=== PATIENT | male | born 1935 | race Caucasian/White ===

== ENCOUNTER → 2018-04-08 | Outpatient (CLI) | payer MEDICARE, OTHER ==
--- NOTE | 2018-04-08 13:55 | US ---
EXAMINATION TYPE: US prostate transrectal DATE OF EXAM: 04/08/2018 COMPARISON: NONE CLINICAL HISTORY: R97.20 elevated PSA. no urinary symptoms, PSA was 14 10 yrs ago and patient had bio psy at that time, PSA was staying steady at 2 and now is 5.4 This examination was performed using the transrectal probe. EXAM MEASUREMENTS: Gland Size: 5.5 x 5.5 x 4.1cm Volume: 65.9ml Predicted PSA: 7.9 Actual PSA (if available):5.2 Enlarged gland. Thin, heterogeneous appearance of PZ tissue versus large calcified CZ, no focal anoma ly seen on today exam. Difficult to image the seminal vesicles. IMPRESSION: Somewhat suboptimal exam due to shadowing by multiple central zone calcifications. Findi ngs are compatible with moderate benign prostatic hyperplasia. No focal suspicious abnormality is see n.
== END | disposition home or self-care (01) ==
LOC: RADUSMAIN 08:14
PROVIDERS: ATTEND Internal Medicine
DX: R97.20 Elevated prostate specific antigen [PSA] (principal); N40.0 Benign prostatic hyperplasia without lower urinary tract symptoms
CPT/HCPCS: 76872

== ENCOUNTER → 2018-07-08 | Outpatient (CLI) | payer MEDICARE, OTHER | END | disposition home or self-care (01) | LOC: LABWHC1 10:44 | PROVIDERS: ATTEND Internal Medicine | DX: E11.9 Type 2 diabetes mellitus without complications (principal) | CPT/HCPCS: 36415; 82043; 82570; 83036 ==

== ENCOUNTER → 2018-07-08 | Outpatient (CLI) | payer MEDICARE, OTHER ==
[2018-07-08 12:00] LABS: Hypochromasia Slight; MCH 29.2 pg (25.0-35.0); MCHC 31.3 g/dL (31.0-37.0); MCV 93.3 fL (80.0-100.0); Mean Platelet Volume 7.1; Platelet Count 175 k/uL (150-450); RBC 3.43 m/uL (4.30-5.90); WBC 7.3 k/uL (3.8-10.6)
[2018-07-08 12:04] LABS: INR 1.3 (<1.2); Partial Thromboplastin Time 28.9 sec (22.0-30.0)
[2018-07-08 12:05] LABS: Albumin 3.9 g/dL (3.5-5.0); Calcium 9.7 mg/dL (8.4-10.2); Potassium 4.4 mmol/L (3.5-5.1); Total Bilirubin 0.9 mg/dL (0.2-1.3); Total Protein 6.4 g/dL (6.3-8.2)
[2018-07-08 12:14] LABS: Appearance,Urine Clear (Clear); Bacteria,Urine Rare /hpf; Bilirubin,Urine Negative (Negative); Blood,Urine Negative (Negative); Color,Urine Yellow; Glucose,Urine (UA) Negative (Negative); Hyaline Casts,Urine 4 /lpf (0-2); Ketones,Urine Negative (Negative); Leukocyte Esterase,Urine Negative (Negative); Mucus,Urine Rare /hpf; Nitrite,Urine Negative (Negative); PH, Urine 5.5 (5.0-8.0); Protein,Urine 1+ (Negative); Specific Gravity,Urine 1.025 (1.001-1.035); Squamous Epithelial Cell,Urine <1 /hpf (0-4); Urobilinogen,Urine <2.0 mg/dL (<2.0); WBC,Urine 1 /hpf (0-5)
== END | disposition home or self-care (01) ==
LOC: LABPAT 10:40
PROVIDERS: ATTEND Orthopaedic Surgery
DX: Z01.812 Encounter for preprocedural laboratory examination (principal)
CPT/HCPCS: 36415; 80053; 81001; 85027; 85610; 85730; 87070

== ENCOUNTER 2018-07-10 11:18 | Observation (INO) | payer MEDICARE, OTHER ==
[2018-07-10] MEDS ORDERED: SODIUM CHLORIDE 0.9% 1,000 ML IV STA (11:41)
[2018-07-10] MEDS ORDERED: RX INFO: IV CONTRAST WAS GIVEN 1 EACH MISC MISCELLANE PRN (11:45)
--- NOTE | 2018-07-10 11:51 | ED ---
Syncope HPI <Skip Hudson - Last Filed: 07/10/18 15:35> - General Source: patient, family, RN notes reviewed, old records reviewed Mode of arrival: EMS Limitations: physical limitation <Ashleigh Alonzo - Last Filed: 07/10/18 15:50> - General Chief Complaint: Dizziness Stated Complaint: SYNCOPE Time Seen by Provider: 07/10/18 11:29 - History of Present Illness Initial Comments: Patient is an 82-year-old male presents today with chief complaint of syncopal episode. Patient reports that throughout the night he was somewhat dizzy. Patient states he would wake up feeling very dizzy and lightheaded but without effect bed. He states he woke up feeling well. He states that then he was eating his breakfast he started to feel unwell. He took his blood pressure was elevated at time. When standing after eating breakfast to go to his chair Patient had a syncopal episode. His on the ground. At this time he complains of "T1 pain. He is I'll request. History of coronary bypass surgery by Dr. Fatima. Patient states that he otherwise prior to today he has felt well. (Ashleigh Alonzo) - Related Data Home Medications Medication Instructions Recorded Confirmed Acetaminophen [Tylenol Arthritis] 650 mg PO DAILY PRN 07/10/18 07/10/18 Apixaban [Eliquis] 5 mg PO BID 07/10/18 07/10/18 Atorvastatin [Lipitor] 60 mg PO DAILY 07/10/18 07/10/18 Benzonatate [Tessalon Perles] 100 mg PO Q8H PRN 07/10/18 07/10/18 Cholecalciferol [Vitamin D3] 1,000 unit PO DAILY 07/10/18 07/10/18 Fenofibrate Nanocrystallized 145 mg PO DAILY 07/10/18 07/10/18 [Tricor] Ferrous Sulfate [Feosol] 325 mg PO DAILY 07/10/18 07/10/18 Loratadine [Claritin] 10 mg PO DAILY 07/10/18 07/10/18 Olmesartan [Benicar] 5 mg PO BID 07/10/18 07/10/18 Omeprazole 20 mg PO DAILY 07/10/18 07/10/18 Oxybutynin Xl [Ditropan Xl] 5 mg PO HS 07/10/18 07/10/18 Pioglitazone [Actos] 15 mg PO DAILY 07/10/18 07/10/18 Tamsulosin [Flomax] 0.4 mg PO HS 07/10/18 07/10/18 Torsemide [Demadex] 5 mg PO Q48H 07/10/18 07/10/18 glipiZIDE [Glucotrol] 10 mg PO AC-BRKFST 07/10/18 07/10/18 levETIRAcetam [Keppra] 1,000 mg PO Q12HR 07/10/18 07/10/18 sitaGLIPtin [Januvia] 100 mg PO DAILY 07/10/18 07/10/18 Allergies Allergy/AdvReac Type Severity Reaction Status Date / Time codeine AdvReac Unknown Verified 07/10/18 11:38 enalapril AdvReac Unknown Verified 07/10/18 11:38 enalaprilat [From Vasotec] AdvReac Unknown Verified 07/10/18 11:38 Sulfa (Sulfonamide AdvReac Unknown Verified 07/10/18 11:38 Antibiotics) sulfadiazine AdvReac Unknown Verified 07/10/18 11:38 sulfamethoxazole AdvReac Unknown Verified 07/10/18 11:38 [From Bactrim] trimethoprim [From Bactrim] AdvReac Unknown Verified 07/10/18 11:38 Review of Systems ROS Other: All systems not noted in ROS Statement are negative. <Skip Hudson - Last Filed: 07/10/18 15:35> ROS Other: All systems not noted in ROS Statement are negative. <Ashleigh Alonzo - Last Filed: 07/10/18 15:50> ROS Statement: Those systems with pertinent positive or pertinent negative responses have been documented in the HPI. Past Medical History Past Medical History: Atrial Fibrillation, Diabetes Mellitus, Hyperlipidemia, Hypertension Additional Past Medical History / Comment(s): T1 back injury History of Any Multi-Drug Resistant Organisms: None Reported Past Surgical History: Coronary Bypass/CABG, Heart Catheterization With Stent, Joint Replacement Additional Past Surgical History / Comment(s): lt knee Past Psychological History: No Psychological Hx Reported Smoking Status: Former smoker Past Alcohol Use History: None Reported Past Drug Use History: None Reported <Ashleigh Alonzo - Last Filed: 07/10/18 15:50> General Exam <Skip Hudson - Last Filed: 07/10/18 15:35> Limitations: physical limitation General appearance: alert Head exam: Present: atraumatic, normocephalic, normal inspection Eye exam: Present: normal appearance, PERRL, EOMI, nystagmus (Some lateral nystagmus on exam). Absent: scleral icterus, conjunctival injection, periorbital swelling ENT exam: Present: normal exam, mucous membranes moist Neck exam: Present: normal inspection. Absent: tenderness, meningismus, lymphadenopathy Respiratory exam: Present: normal lung sounds bilaterally. Absent: respiratory distress, wheezes, rales, rhonchi, stridor Cardiovascular Exam: Present: normal rhythm, normal heart sounds. Absent: regular rate, systolic murmur, diastolic murmur, rubs, gallop, clicks GI/Abdominal exam: Present: soft, normal bowel sounds. Absent: distended, tenderness, guarding, rebound, rigid Extremities exam: Present: normal inspection, full ROM, normal capillary refill , other (Bruising over the left arm.). Absent: tenderness, pedal edema, joint swelling, calf tenderness Back exam: Present: normal inspection Neurological exam: Present: alert, oriented X3, CN II-XII intact Expanded Patient oriented to: Present: person, place, time Speech: Present: fluid speech Cranial nerves: EOM's Intact: Normal Cerebellar function: Finger to Nose: Normal Upper motor neuron: Pronator Drift: Normal Sensory exam: Upper Extremity Light Touch: Normal, Lower Extremity Light Touch: Normal Motor strength exam: RUE: 5, LUE: 5, RLE: 5, LLE: 5 Psychiatric exam: Present: normal affect, normal mood Skin exam: Present: warm, dry, intact, normal color. Absent: rash <Ashleigh Alonzo - Last Filed: 07/10/18 15:50> - General Exam Comments Initial Comments: 82-year-old male. Patient appears somewhat weak. (Ashleigh Alonzo) Course <TristanSkip - Last Filed: 07/10/18 15:35> <Ashleigh Alonzo - Last Filed: 07/10/18 15:50> Vital Signs 07/10/18 07/10/18 07/10/18 11:22 11:45 12:11 Temperature 97.5 F L Pulse Rate 91 65 65 Respiratory 18 20 20 Rate Blood Pressure 186/87 199/102 176/91 O2 Sat by Pulse 97 94 L Oximetry 07/10/18 07/10/18 07/10/18 13:00 14:00 14:57 Temperature Pulse Rate 66 84 66 Respiratory 20 18 20 Rate Blood Pressure 184/92 180/87 178/93 O2 Sat by Pulse 97 98 98 Oximetry - Reevaluation(s) Reevaluation #1: 07/10/18 15:35 PA supervision: I proceeded [id number] evaluation patient did discuss the findings with him and his . Patient did have the onset of severe dizziness today. He states is worse in his usual vertigo. There is conflicting reports on whether she passed out or not. He does feel somewhat better but is still profoundly dizzy after Antivert. Examination revealed no focal deficits CT angios showed no evidence of any acute obstruction. I did discuss case with Dr. Kim the patient will be admitted with ENT evaluation. I do agree with the assessment and plan (Skip Hudson) Medical Decision Making - Lab Data Result diagrams: 07/10/18 11:40 07/10/18 11:40 <Skip Hudson - Last Filed: 07/10/18 15:35> - Lab Data Result diagrams: 07/10/18 11:40 07/10/18 11:40 - Radiology Data Radiology results: report reviewed <Ashleigh Alonzo - Last Filed: 07/10/18 15:50> - Medical Decision Making Patient is an 82-year-old male presents today with complaints of dizziness. He reports he had some dizziness with sweating. He needs breakfast and then continued some dizziness. He also states he had very lightheaded and near syncopal episode. Patient started on IV fluids labwork obtained. EKG was reviewed and negative for any significant changes from his old when compared to the office. Patient Patient was given Antivert for his dizziness with mild improvement. On reevaluation he states he continues to persist. The CT of his brain was negative for any acute changes. We did do a retinal the chest to dishes and cardiomegaly. But no acute changes. Patient will be admitted at this time under Dr. Velásquez prescription with consult ENT for vertigo. (Ashleigh Alonzo) - Lab Data Lab Results 07/10/18 07/10/18 07/10/18 Range/Units 11:40 11:40 11:40 WBC 6.8 (3.8-10.6) k/uL RBC 3.53 L (4.30-5.90) m/uL Hgb 10.3 L (13.0-17.5) gm/dL Hct 32.0 L (39.0-53.0) % MCV 90.6 (80.0-100.0) fL MCH 29.2 (25.0-35.0) pg MCHC 32.3 (31.0-37.0) g/dL RDW 14.9 (11.5-15.5) % Plt Count 190 (150-450) k/uL Neutrophils % 83 % Lymphocytes % 9 % Monocytes % 6 % Eosinophils % 1 % Basophils % 0 % Neutrophils # 5.6 (1.3-7.7) k/uL Lymphocytes # 0.6 L (1.0-4.8) k/uL Monocytes # 0.4 (0-1.0) k/uL Eosinophils # 0.1 (0-0.7) k/uL Basophils # 0.0 (0-0.2) k/uL PT (9.0-12.0) sec INR (<1.2) APTT (22.0-30.0) sec D-Dimer (<0.60) mg/L FEU Sodium 140 (137-145) mmol/L Potassium 3.7 (3.5-5.1) mmol/L Chloride 110 H (98-107) mmol/L Carbon Dioxide 22 (22-30) mmol/L Anion Gap 8 mmol/L BUN 16 (9-20) mg/dL Creatinine 1.15 (0.66-1.25) mg/dL Est GFR (CKD-EPI)AfAm 70 (>60 ml/min/1.73 sqM) Est GFR (CKD-EPI)NonAf 60 (>60 ml/min/1.73 sqM) Glucose 143 H (74-99) mg/dL POC Glucose (mg/dL) (75-99) mg/dL POC Glu Executive Admin ID Calcium 9.8 (8.4-10.2) mg/dL Magnesium 1.6 (1.6-2.3) mg/dL Total Bilirubin 1.3 (0.2-1.3) mg/dL AST 25 (17-59) U/L ALT 32 (21-72) U/L Alkaline Phosphatase 42 (38-126) U/L Total Creatine Kinase 108 (55-170) U/L CK-MB (CK-2) 0.8 (0.0-2.4) ng/mL CK-MB (CK-2) Rel Index 0.7 Troponin I 0.015 (0.000-0.034) ng/mL Total Protein 6.3 (6.3-8.2) g/dL Albumin 3.8 (3.5-5.0) g/dL 07/10/18 07/10/18 Range/Units 11:40 12:16 WBC (3.8-10.6) k/uL RBC (4.30-5.90) m/uL Hgb (13.0-17.5) gm/dL Hct (39.0-53.0) % MCV (80.0-100.0) fL MCH (25.0-35.0) pg MCHC (31.0-37.0) g/dL RDW (11.5-15.5) % Plt Count (150-450) k/uL Neutrophils % % Lymphocytes % % Monocytes % % Eosinophils % % Basophils % % Neutrophils # (1.3-7.7) k/uL Lymphocytes # (1.0-4.8) k/uL Monocytes # (0-1.0) k/uL Eosinophils # (0-0.7) k/uL Basophils # (0-0.2) k/uL PT 12.8 H (9.0-12.0) sec INR 1.2 H (<1.2) APTT 27.1 (22.0-30.0) sec D-Dimer 0.86 H (<0.60) mg/L FEU Sodium (137-145) mmol/L Potassium (3.5-5.1) mmol/L Chloride (98-107) mmol/L Carbon Dioxide (22-30) mmol/L Anion Gap mmol/L BUN (9-20) mg/dL Creatinine (0.66-1.25) mg/dL Est GFR (CKD-EPI)AfAm (>60 ml/min/1.73 sqM) Est GFR (CKD-EPI)NonAf (>60 ml/min/1.73 sqM) Glucose (74-99) mg/dL POC Glucose (mg/dL) 131 H (75-99) mg/dL POC Glu Executive Admin ID Calcium (8.4-10.2) mg/dL Magnesium (1.6-2.3) mg/dL Total Bilirubin (0.2-1.3) mg/dL AST (17-59) U/L ALT (21-72) U/L Alkaline Phosphatase (38-126) U/L Total Creatine Kinase (55-170) U/L CK-MB (CK-2) (0.0-2.4) ng/mL CK-MB (CK-2) Rel Index Troponin I (0.000-0.034) ng/mL Total Protein (6.3-8.2) g/dL Albumin (3.5-5.0) g/dL 07/10/18 11:54 EKG shows wide QRS. Left axis deviation. 5. Minimal voltage criteria for LVH. Abnormal EKG. Ventricular rate 67 bpm. Those were undetected. QRS duration 140 ms. QT QTc is 456/481 ms. (Ashleigh Alonzo) - Radiology Data The CT shows no evidence of this [place] occlusion or cranial aneurysm or cranial dissection. Moderate to severe atherosclerotic changes in the cavernous and supraclavicular portions of the internal carotid arteries. CT chest shows ground glass changes posteriorly likely related to motion artifact. Global cardiomegaly. Coronary artery calcification. Atherosclerotic change the aorta. Artifact reduced enhancement secondary to the phase imaging assess that of axillary. Multilevel degenerative disc disease and hypertrophic changes noted. (Ashleigh Alonzo) Disposition <Skip Hudson - Last Filed: 07/10/18 15:35> Is patient prescribed a controlled substance at d/c from ED?: No Time of Disposition: 15:50 <Ashleigh Alonzo - Last Filed: 07/10/18 15:50> Clinical Impression: Dizziness, Syncope Disposition: HOME SELF-CARE Condition: Good Instructions (If sedation given, give patient instructions): Dizziness (ED) Referrals: Marce Reilly MD [Primary Care Provider] - 1-2 days
[2018-07-10 12:16] LABS: Basophils % (A) 0 %; Eosinophils # (A) 0.1 k/uL (0-0.7); Eosinophils % (A) 1 %; HGB 10.3 gm/dL (13.0-17.5); Lymphocytes # (A) 0.6 k/uL (1.0-4.8); Lymphocytes % (A) 9 %; MCH 29.2 pg (25.0-35.0); MCHC 32.3 g/dL (31.0-37.0); MCV 90.6 fL (80.0-100.0); Monocytes # (A) 0.4 k/uL (0-1.0); Monocytes % (A) 6 %; Neutrophils # (A) 5.6 k/uL (1.3-7.7); Neutrophils % (A) 83 %; Platelet Count 190 k/uL (150-450); RBC 3.53 m/uL (4.30-5.90); RDW 14.9 % (11.5-15.5); WBC 6.8 k/uL (3.8-10.6)
[2018-07-10] MEDS ORDERED: MECLIZINE 12.5 MG TAB PO STA (12:16)
[2018-07-10 12:22] LABS: Glucose,Whole Blood 131 mg/dL (75-99)
[2018-07-10 12:24] LABS: Albumin 3.8 g/dL (3.5-5.0); Calcium 9.8 mg/dL (8.4-10.2); Magnesium 1.6 mg/dL (1.6-2.3); Potassium 3.7 mmol/L (3.5-5.1); Total Bilirubin 1.3 mg/dL (0.2-1.3); Total Protein 6.3 g/dL (6.3-8.2)
[2018-07-10 12:29] LABS: INR 1.2 (<1.2); Partial Thromboplastin Time 27.1 sec (22.0-30.0); Prothrombin Time 12.8 sec (9.0-12.0)
[2018-07-10 12:53] LABS: Creatine Kinase MB 0.8 ng/mL (0.0-2.4); Troponin I 0.015 ng/mL (0.000-0.034)
[2018-07-10 12:59] LABS: D-Dimer 0.86 mg/L FEU (<0.60)
--- NOTE | 2018-07-10 14:33 | CT ---
EXAMINATION TYPE: CT angio head DATE OF EXAM: 07/10/2018 HISTORY: syncope COMPARISON: NONE CT DLP: 2689 mGycm. Automated Exposure Control for Dose Reduction was Utilized. TECHNIQUE: CTA scan of the neck is performed with IV Contrast, patient injected with 100 mL of Isovu e 370, axial images are obtained, coronal and sagittal reformatted images are reviewed. Three-D recon structed images are created on an independent workstation and reviewed. FINDINGS: Carotid/Vascular Structures: Moderate to severe atherosclerosis is seen of the cavernous and supracli noid portions of the internal carotid arteries. Degree of stenosis is difficult to accurately assess at least locations given the tortuosity, however there is no vascular occlusion. No intracranial aneu rysm is seen. No intracranial dissection. Mild atherosclerosis of the right vertebral artery is noted . The vertebral arteries demonstrate right-sided dominance. Posterior circulation is unremarkable. Po sterior communicating arteries appear diminutive. IMPRESSION: No evidence of vascular occlusion, intracranial aneurysm or intracranial dissection. Mode rate to severe calcific atheromatous changes seen of the cavernous and supraclinoid portions of the i nternal carotid arteries.
--- NOTE | 2018-07-10 14:35 | CT ---
EXAMINATION TYPE: CT chest w con DATE OF EXAM: 07/10/2018 COMPARISON: Chest x-ray 07/10/2018 HISTORY: syncope CT DLP: 672.6 mGycm Automated exposure control for dose reduction was used. CONTRAST: CT scan of the chest is performed with IV Contrast, patient injected with 100 mL of Isovue 370. FINDINGS: LUNGS: Subsegmental changes involving the right lung base. No pleural effusion or pneumothorax. MEDIASTINUM: There are no greater than 1 cm hilar or mediastinal lymph nodes. No pericardial effusi on is seen. The heart is markedly enlarged. 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 Three-vessel coronary calcifications noted. Assessment for pulmonary embolism nondiagnostic due to suboptimal opacification . Aorta grossly of normal caliber. A limited enhancement limits assessment for aortic injury secondar y to phase of imaging post CTA of the head. Exam limited by artifact. OTHER: Hypertrophic and degenerative change of the spine. Poststernotomy changes noted. Bilateral si mple appearing renal cyst. IMPRESSION: 1. Groundglass changes posteriorly likely related to motion artifact and respiratory dependent atelec tasis. 2. Global cardiomegaly. 3. Coronary artery calcification. Atherosclerotic change aorta. Artifact in reduced enhancement secon celso to phase of imaging limits assessment of the vascularity. 4. Multilevel degenerative disc disease and hypertrophic changes.
[2018-07-10] MEDS ORDERED: MORPHINE SULFATE 4 MG/ML SYRINGE IV PRN (15:50)
[2018-07-10] MEDS ORDERED: NALOXONE 0.4 MG/ML 1 ML VIAL IV PRN (15:50)
[2018-07-10] MEDS ORDERED: ONDANSETRON 4 MG/2 ML VIAL IVP PRN (15:50)
[2018-07-10] MEDS ORDERED: KETOROLAC 30 MG/ML 1 ML VIAL IVP PRN (15:50)
[2018-07-10] MEDS ORDERED: ACETAMINOPHEN TAB 325 MG TAB PO PRN ×2 (15:50→20:28)
[2018-07-10] MEDS ORDERED: IBUPROFEN 400 MG TAB PO PRN (15:50)
[2018-07-10] MEDS ORDERED: SODIUM CHLORIDE 0.9% 1,000 ML IV SCH (16:00)
--- NOTE | 2018-07-10 16:14 | ED ---
Medical Decision Making - Lab Data Result diagrams: 07/10/18 11:40 07/10/18 11:40 Lab Results 07/10/18 07/10/18 07/10/18 Range/Units 11:40 11:40 11:40 WBC 6.8 (3.8-10.6) k/uL RBC 3.53 L (4.30-5.90) m/uL Hgb 10.3 L (13.0-17.5) gm/dL Hct 32.0 L (39.0-53.0) % MCV 90.6 (80.0-100.0) fL MCH 29.2 (25.0-35.0) pg MCHC 32.3 (31.0-37.0) g/dL RDW 14.9 (11.5-15.5) % Plt Count 190 (150-450) k/uL Neutrophils % 83 % Lymphocytes % 9 % Monocytes % 6 % Eosinophils % 1 % Basophils % 0 % Neutrophils # 5.6 (1.3-7.7) k/uL Lymphocytes # 0.6 L (1.0-4.8) k/uL Monocytes # 0.4 (0-1.0) k/uL Eosinophils # 0.1 (0-0.7) k/uL Basophils # 0.0 (0-0.2) k/uL PT (9.0-12.0) sec INR (<1.2) APTT (22.0-30.0) sec D-Dimer (<0.60) mg/L FEU Sodium 140 (137-145) mmol/L Potassium 3.7 (3.5-5.1) mmol/L Chloride 110 H (98-107) mmol/L Carbon Dioxide 22 (22-30) mmol/L Anion Gap 8 mmol/L BUN 16 (9-20) mg/dL Creatinine 1.15 (0.66-1.25) mg/dL Est GFR (CKD-EPI)AfAm 70 (>60 ml/min/1.73 sqM) Est GFR (CKD-EPI)NonAf 60 (>60 ml/min/1.73 sqM) Glucose 143 H (74-99) mg/dL POC Glucose (mg/dL) (75-99) mg/dL POC Glu Apron Cleaner ID Calcium 9.8 (8.4-10.2) mg/dL Magnesium 1.6 (1.6-2.3) mg/dL Total Bilirubin 1.3 (0.2-1.3) mg/dL AST 25 (17-59) U/L ALT 32 (21-72) U/L Alkaline Phosphatase 42 (38-126) U/L Total Creatine Kinase 108 (55-170) U/L CK-MB (CK-2) 0.8 (0.0-2.4) ng/mL CK-MB (CK-2) Rel Index 0.7 Troponin I 0.015 (0.000-0.034) ng/mL Total Protein 6.3 (6.3-8.2) g/dL Albumin 3.8 (3.5-5.0) g/dL 07/10/18 07/10/18 Range/Units 11:40 12:16 WBC (3.8-10.6) k/uL RBC (4.30-5.90) m/uL Hgb (13.0-17.5) gm/dL Hct (39.0-53.0) % MCV (80.0-100.0) fL MCH (25.0-35.0) pg MCHC (31.0-37.0) g/dL RDW (11.5-15.5) % Plt Count (150-450) k/uL Neutrophils % % Lymphocytes % % Monocytes % % Eosinophils % % Basophils % % Neutrophils # (1.3-7.7) k/uL Lymphocytes # (1.0-4.8) k/uL Monocytes # (0-1.0) k/uL Eosinophils # (0-0.7) k/uL Basophils # (0-0.2) k/uL PT 12.8 H (9.0-12.0) sec INR 1.2 H (<1.2) APTT 27.1 (22.0-30.0) sec D-Dimer 0.86 H (<0.60) mg/L FEU Sodium (137-145) mmol/L Potassium (3.5-5.1) mmol/L Chloride (98-107) mmol/L Carbon Dioxide (22-30) mmol/L Anion Gap mmol/L BUN (9-20) mg/dL Creatinine (0.66-1.25) mg/dL Est GFR (CKD-EPI)AfAm (>60 ml/min/1.73 sqM) Est GFR (CKD-EPI)NonAf (>60 ml/min/1.73 sqM) Glucose (74-99) mg/dL POC Glucose (mg/dL) 131 H (75-99) mg/dL POC Glu Apron Cleaner ID Calcium (8.4-10.2) mg/dL Magnesium (1.6-2.3) mg/dL Total Bilirubin (0.2-1.3) mg/dL AST (17-59) U/L ALT (21-72) U/L Alkaline Phosphatase (38-126) U/L Total Creatine Kinase (55-170) U/L CK-MB (CK-2) (0.0-2.4) ng/mL CK-MB (CK-2) Rel Index Troponin I (0.000-0.034) ng/mL Total Protein (6.3-8.2) g/dL Albumin (3.5-5.0) g/dL Disposition Clinical Impression: Dizziness, Syncope Disposition: ADMITTED IP TO THIS HOSP Condition: Good Instructions (If sedation given, give patient instructions): Dizziness (ED) Referrals: Marce Reilly MD [Primary Care Provider] - 1-2 days
[2018-07-10] MEDS: LORazepam 2 MG/ML INJ IV PRN ×2 (16:56→22:03)
[2018-07-10 17:41] LABS: Appearance,Urine Clear (Clear); Bilirubin,Urine Negative (Negative); Blood,Urine Negative (Negative); Color,Urine Yellow; Glucose,Urine (UA) Trace (Negative); Ketones,Urine Negative (Negative); Leukocyte Esterase,Urine Negative (Negative); Nitrite,Urine Negative (Negative); Protein,Urine Trace (Negative); Specific Gravity,Urine 1.028 (1.001-1.035); Urobilinogen,Urine <2.0 mg/dL (<2.0)
[2018-07-10] MEDS ORDERED: NON-FORMULARY DRUG (Torsemide [Demadex] 5 MG) PO SCH (20:30)
[2018-07-10 20:46] LABS: Glucose,Whole Blood 203 mg/dL (75-99)
[2018-07-10] MEDS ORDERED: OXYBUTYNIN XL 5 MG TAB.ER.24 PO SCH (21:00)
[2018-07-10] MEDS ORDERED: TAMSULOSIN 0.4 MG CAP.ER.24H PO SCH (21:00)
[2018-07-10] MEDS: CHOLECALCIFEROL 1,000 UNIT TAB PO SCH (22:01)
[2018-07-10] MEDS: PANTOPRAZOLE 40 MG/10 ML VIAL IV SCH (22:01)
[2018-07-10] MEDS: APIXABAN 5 MG TAB PO SCH (22:02)
[2018-07-10] MEDS: PIOGLITAZONE 15 MG TAB PO SCH (22:02)
[2018-07-10] MEDS: levETIRAcetam 500 MG TAB PO SCH (22:02)
[2018-07-10] MEDS: LOSARTAN 25 MG TAB PO SCH (22:02)
[2018-07-10] MEDS: INSULIN ASPART 100 UNIT/ML 1 ML 10 ML VIAL SQ SCH (22:03)
[2018-07-10] MEDS: ATORVASTATIN 20 MG TAB PO SCH (22:03)
[2018-07-10] MEDS ORDERED: MECLIZINE 25 MG TAB PO PRN (23:10)
--- NOTE | 2018-07-10 23:24 | P.HPIM ---
History of Present Illness H&P Date: 07/10/18 Chief Complaint: Vertigo Patient is a 82-year-old male with a known history of paroxysmal atrial fibrillation on anticoagulation, coronary artery disease with history of CABG and stent placement, diabetes type 2, hypertension, hyperlipidemia, GERD, osteoarthritis and prostate disorder came to ER with complaints of near syncope and dizziness and vertigo. Patient says that his dizziness started last night when he moved his head to the left while he was on the bed. Patient woke up and felt like room spinning around for about 30 seconds and he went back to sleep. It happened again and he felt okay after 30 seconds and back to sleep. Today patient felt good and the brake fast and started having dizziness and lightheadedness again. Patient says that his blood pressure was high at the time 180/100 and heart rate around 100. Patient went to turn up the heat and suddenly collapsed on the floor. Denied any loss of consciousness. Patient has been having had spinning since then. Symptoms get worsen with head movement. Patient denied any weakness. No numbness or tingling. No chest pain or shortness of breath. No nausea vomiting or abdominal pain or diarrhea. Denied any recent illnesses. Patient was brought to the hospital for evaluation. Patient states that he otherwise prior to today he has felt well. EKG showed wide complex QRS, right bundle branch block. CT angiogram of the head showed no evidence of vascular occlusion. , Intracranial aneurysm, or intracranial dissection. moderate to severe calcific atheromatous changes seen in the cavernous and supraclinoid portions of the internal carotid arteries. CT angiogram of the chest showed groundglass changes posteriorly likely related to motion artifact and respiratory dependent atelectasis. Global cardiomegaly Coronary artery calcification. Atheromatous changes of aorta. Multilevel degenerative disc disease. D-dimer 0.86 Troponin 2 negative Review of Systems Constitutional: Patient denies any fever or chills . No generalized weakness or weight loss. Abdomen: Patient denied nausea vomiting and diarrhea and abdominal pain. Cardiovascular: Patient denies any chest pain or short of breath no palpitations. Respiratory: patient denied any cough is from production. No shortness of breath Neurologic: Patient denied any numbness or tingling headache. Dizziness and vertigo Musculoskeletal: Patient denies any complaints of joint swelling or deformity. Skin: Negative Psychiatric: Negative Endocrine: No heat or cold intolerance. No recent weight gain. Genitourinary: No dysuria or hematuria. 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- PLEASE F/U WITH DR OFFICE IN AM History of Any Multi-Drug Resistant Organisms: None Reported Past Surgical History: Coronary Bypass/CABG, Heart Catheterization With Stent, Joint Replacement Additional Past Surgical History / Comment(s): lt knee REPLACEMENT, FAVIOLA CATARACTS, EGD,COLONOSCOPY Past Anesthesia/Blood Transfusion Reactions: Previous Problems w/ Anesthesia, Motion Sickness Additional Past Anesthesia/Blood Transfusion Reaction / Comment(s): DIFFICULTY WAKING AND PT HAS SEVERE REACTIONS TO PROPOFOL AND DIPRIVAN Date of Last Stent Placement:: UNK Smoking Status: Former smoker - Past Family History Mother Family Medical History: Cancer Additional Family Medical History / Comment(s): AGE 77 FROM COLON CANCER Father Family Medical History: Myocardial Infarction ([place]) Additional Family Medical History / Comment(s): AGE 64 FROM [place] Medications and Allergies Home Medications Medication Instructions Recorded Confirmed Type Acetaminophen [Tylenol Arthritis] 650 mg PO DAILY PRN 07/10/18 07/10/18 History Apixaban [Eliquis] 5 mg PO BID 07/10/18 07/10/18 History Atorvastatin [Lipitor] 60 mg PO DAILY 07/10/18 07/10/18 History Cholecalciferol [Vitamin D3] 1,000 unit PO DAILY 07/10/18 07/10/18 History Fenofibrate Nanocrystallized 145 mg PO DAILY 07/10/18 07/10/18 History [Tricor] Ferrous Sulfate [Feosol] 325 mg PO DAILY 07/10/18 07/10/18 History Loratadine [Claritin] 10 mg PO DAILY 07/10/18 07/10/18 History Olmesartan [Benicar] 5 mg PO BID 07/10/18 07/10/18 History Omeprazole 20 mg PO DAILY 07/10/18 07/10/18 History Oxybutynin Xl [Ditropan Xl] 5 mg PO HS 07/10/18 07/10/18 History Pioglitazone [Actos] 15 mg PO DAILY 07/10/18 07/10/18 History Tamsulosin [Flomax] 0.4 mg PO HS 07/10/18 07/10/18 History Torsemide [Demadex] 5 mg PO Q48H 07/10/18 07/10/18 History glipiZIDE [Glucotrol] 10 mg PO AC-BRKFST 07/10/18 07/10/18 History levETIRAcetam [Keppra] 1,000 mg PO Q12HR 07/10/18 07/10/18 History sitaGLIPtin [Januvia] 100 mg PO DAILY 07/10/18 07/10/18 History Allergies Allergy/AdvReac Type Severity Reaction Status Date / Time propofol Allergy Severe Unknown Verified 07/10/18 19:50 codeine AdvReac Unknown Verified 07/10/18 19:50 enalapril AdvReac Unknown Verified 07/10/18 19:50 enalaprilat [From Vasotec] AdvReac Unknown Verified 07/10/18 19:50 Sulfa (Sulfonamide AdvReac Unknown Verified 07/10/18 19:50 Antibiotics) sulfadiazine AdvReac Unknown Verified 07/10/18 19:50 sulfamethoxazole AdvReac Unknown Verified 07/10/18 19:50 [From Bactrim] trimethoprim [From Bactrim] AdvReac Unknown Verified 07/10/18 19:50 Physical Exam Vitals: Vital Signs Temp Pulse Pulse Resp BP BP Pulse Ox 07/10/18 20:08 20 07/10/18 20:00 97.7 F 84 16 173/93 98 07/10/18 18:56 98.6 F 86 20 167/68 99 07/10/18 18:00 83 20 165/81 97 07/10/18 17:00 80 18 162/92 99 07/10/18 16:00 87 20 165/88 96 07/10/18 14:57 66 20 178/93 98 07/10/18 14:00 84 18 180/87 98 07/10/18 13:00 66 20 184/92 97 07/10/18 12:11 65 20 176/91 07/10/18 11:45 65 20 199/102 94 L 07/10/18 11:22 97.5 F L 91 18 186/87 97 Intake and Output 07/10/18 07/10/18 07/10/18 06:59 14:59 22:59 Other: Voiding Method Toilet Weight 104.326 kg PHYSICAL EXAMINATION: Patient is lying in the bed comfortably, no acute distress, awake alert and oriented.. HEENT: Normocephalic. Neck is supple. Pupils reactive. Nostrils clear. Oral cavity is moist. Ears reveal no drainage. Neck reveals no JVD, carotid bruits, or thyromegaly. CHEST EXAMINATION: Trachea is central. Symmetrical expansion. Lung celaya clear to auscultation and percussion. CARDIAC: Normal S1, S2 with no gallops. No murmurs ABDOMEN: Soft. Bowel sounds normal. No organomegaly. No abdominal bruits. Extremities: reveal no edema. No clubbing or cyanosis Neurologically awake, alert, oriented x3 with well-coordinated movements. No focal deficits noted Skin: No rash or skin lesions. Psychiatric: Coperative. Nonsuicidal Musculoskeletal: No joint swelling or deformity. Normal range of motion. Results CBC & Chem 7: 07/10/18 11:40 07/10/18 11:40 Labs: Abnormal Lab Results - Last 24 Hours (Table) 07/10/18 07/10/18 07/10/18 Range/Units 11:40 11:40 11:40 RBC 3.53 L (4.30-5.90) m/uL Hgb 10.3 L (13.0-17.5) gm/dL Hct 32.0 L (39.0-53.0) % Lymphocytes # 0.6 L (1.0-4.8) k/uL PT 12.8 H (9.0-12.0) sec INR 1.2 H (<1.2) D-Dimer 0.86 H (<0.60) mg/L FEU Chloride 110 H (98-107) mmol/L Glucose 143 H (74-99) mg/dL POC Glucose (mg/dL) (75-99) mg/dL Urine Protein (Negative) Urine Glucose (UA) (Negative) 07/10/18 07/10/18 07/10/18 Range/Units 12:16 17:15 20:44 RBC (4.30-5.90) m/uL Hgb (13.0-17.5) gm/dL Hct (39.0-53.0) % Lymphocytes # (1.0-4.8) k/uL PT (9.0-12.0) sec INR (<1.2) D-Dimer (<0.60) mg/L FEU Chloride (98-107) mmol/L Glucose (74-99) mg/dL POC Glucose (mg/dL) 131 H 203 H (75-99) mg/dL Urine Protein Trace H (Negative) Urine Glucose (UA) Trace H (Negative) Thrombosis Risk Factor Assmnt - DVT/VTE Prophylaxis DVT/VTE Prophylaxis: Pharmacologic Prophylaxis ordered - Choose All That Apply Any of the Below Risk Factors Present?: Yes Each Factor Represents 1 point: Abnormal pulmonary function (COPD), Hx of IBD, Obesity (BMI >25) Other Risk Factors: Yes Each Risk Factor Represents 3 Points: Age 75 years or older Thrombosis Risk Factor Assessment Total Risk Factor Score: 6 Thrombosis Risk Factor Assessment Level: High Risk Assessment and Plan Assessment: Dizziness likely due to benign positional vertigo. Paroxysmal atrial fibrillation on anticoagulation Coronary artery disease with history of CABG and also stent placement Elevated d-dimer. CT chest is negative for any pulmonary embolism Hypertension Hyperlipidemia Osteoarthritis Prostate disorder Degenerative joint disease and history of T1 back injury Previous history of smoking Hard of hearing DVT prophylaxis Plan: Patient will be continued on meclizine prays daily when necessary for vertigo. Continue with telemetry monitoring. Serial EKGs and troponins. Continue with home medications and cardiology and ENT was consulted. Further recommendations based on the clinical course. Discussed with his at outside in detail. Time with Patient: Greater than 30
[2018-07-11 06:49] LABS: Glucose,Whole Blood 118 mg/dL (75-99)
[2018-07-11] MEDS ORDERED: glipiZIDE 10 MG TAB PO SCH (07:30)
[2018-07-11] MEDS ORDERED: LORATADINE 10 MG TAB PO SCH (09:00)
[2018-07-11] MEDS ORDERED: ATORVASTATIN 20 MG TAB PO SCH (09:00)
[2018-07-11] MEDS ORDERED: PANTOPRAZOLE 40 MG/10 ML VIAL IV SCH (09:00)
[2018-07-11] MEDS ORDERED: NON-FORMULARY DRUG (Omeprazole [Omeprazole] 20 MG) PO SCH (09:00)
[2018-07-11] MEDS ORDERED: FERROUS SULFATE 325 MG TAB PO SCH (09:00)
[2018-07-11] MEDS ORDERED: PIOGLITAZONE 15 MG TAB PO SCH (09:00)
[2018-07-11] MEDS ORDERED: FENOFIBRATE 160 MG TAB PO SCH (09:00)
[2018-07-11] MEDS ORDERED: LINAGLIPTIN 5 MG TABLET PO SCH (09:00)
[2018-07-11] MEDS ORDERED: CHOLECALCIFEROL 1,000 UNIT TAB PO SCH (09:00)
[2018-07-11 09:08] VITALS: RESP 16
[2018-07-11] MEDS: INSULIN ASPART 100 UNIT/ML 1 ML 10 ML VIAL SQ SCH (10:13)
[2018-07-11] MEDS: APIXABAN 5 MG TAB PO SCH (10:14)
[2018-07-11] MEDS: CHOLECALCIFEROL 1,000 UNIT TAB PO SCH (10:14)
[2018-07-11] MEDS: LOSARTAN 25 MG TAB PO SCH (10:15)
[2018-07-11] MEDS: PIOGLITAZONE 15 MG TAB PO SCH (10:16)
[2018-07-11] MEDS: PANTOPRAZOLE 40 MG/10 ML VIAL IV SCH (10:17)
[2018-07-11] MEDS: levETIRAcetam 500 MG TAB PO SCH (10:26)
[2018-07-11] MEDS: ATORVASTATIN 20 MG TAB PO SCH (10:26)
[2018-07-11 11:41] LABS: Glucose,Whole Blood 160 mg/dL (75-99)
--- NOTE | 2018-07-11 11:45 | P.CRDCN ---
History of Present Illness History of present illness: This is a pleasant 82-year-old male past medical history of coronary artery disease s/p bypass grafting, paroxysmal atrial fibrillation on long-term anticoagulation, hypertension, dyslipidemia and vertigo. He follows with Dr. Fatima in the office. We have been asked to see him in consultation for syncope. He states Saturday night while he was laying down on the left side of his body. He rolled his head to the right and became acutely dizzy for a minutes or so then fell back asleep. He woke up again and moved his head again and again became acutely dizzy for a little over a minute or so. And again fell back asleep. He has a history of vertigo, so these symptoms were not abnormal for him and did not alarm him. When he woke up that next morning he felt generally unwell so he decided to check his blood pressure. It was high 180 systolic with heart rate 112. No chest pain, shortness of breath, palpitations or diaphoresis. Throughout the day he continued to feel symptoms of vertigo and did fall forward when he bent over to turn up his furnace. He denies loss of consciousness. Upon arrival to the hospital blood pressure was continuing to be elevated. EKG reveals atrial fibrillation with right bundle branch block. Controlled ventricular response with a heart rate of 67. Chest CT physical ground glass changes, global cardiomegaly and coronary artery calcification. CTA head no vascular occlusion, aneurysm or dissection. Moderate to severe calcific changes of the internal carotid arteriers. Recent stress test performed in the office December 2017 Lexiscan stress test negative for reversible cardiac ischemia. Recent echocardiogram obtained in the office November 2017 reveals preserved left ventricular systolic function with ejection fraction 55%. Mildly dilated left atrium and mild dilated right ventricle. Laboratory data reviewed, cardiac enzymes negative 3, hemoglobin 10.3, platelets 190, d-dimer 0.86, sodium 140, potassium 1.15. Current cardiac medications include almost certain 5 mg twice a day, atorvastatin 60 mg daily, Eliquis 5 mg twice a day and Demadex 5 mg every other day. At the time of my exam: CONSTITUTIONAL: Denies fever. Denies chills. EYES: Denies blurred vision. Denies vision changes. Denies eye pain. EARS, NOSE, MOUTH & THROAT: Denies headache. Denies sore throat. Denies ear pain. CARDIOVASCULAR: Denies chest pain. Denies shortness of breath. Denies orthopnea. Denies PND. Denies palpitations. RESPIRATORY: Denies cough. GASTROINTESTINAL: Denies abdominal pain. Denies diarrhea. Denies constipation. Denies nausea. Denies vomiting. MUSCULOSKELETAL: Denies myalgias. INTEGUMENTARY: Denies pruitis. Denies rash. NEUROLOGIC: Denies numbness. Denies tingling. Denies weakness. PSYCHIATRIC: Denies anxiety. Denies depression. ENDOCRINE: Denies fatigue. Denies weight change. Denies polydipsia. Denies polyurina. GENITOURINARY: Denies burning, hematuria or urgency with micturation. HEMATOLOGIC: Denies history of anemia. Denies bleeding. Blood pressure 151/73 heart rate 75 afebrile maintaining oxygen saturation on room air GENERAL: This is a 82-year-old male in no apparent distress at the time of my examination. HEENT: Head is atraumatic, normocephalic. Pupils are equal, round. Sclerae anicteric. Conjunctivae are clear. Mucous membranes of the mouth are moist. Neck is supple. There is no jugular venous distention. No carotid bruit is heard. LUNGS: Clear to auscultation no wheezes, rales or rhonchi. No chest wall tenderness is noted on palpation or with deep breathing. HEART: Regular rate and rhythm without murmurs, rubs or gallops. S1 and S2 heard. ABDOMEN: Soft, nontender. Bowel sounds are heard. No organomegaly noted. EXTREMITIES: No evidence of peripheral edema and no calf tenderness noted. VASCULAR: Radial and dorsalis pedis pulses palpated, no evidence of clubbing. NEUROLOGIC: Patient is awake, alert and oriented x3. ASSESSMENT Vertigo Hypertension Paroxysmal atrial fibrillation on retirement anticoagulation. History of coronary artery disease s/p bypass surgery 2006 Dyslipidemia PLAN Stable from a cardiac perspective. No evidence of syncope or loss of consciousness. Telemetry tracings unremarkable for acute arrhythmia outside of his baseline. Ongoing medical management. Nurse Practitioner note has been reviewed, I agree with a documented findings and plan of care. Patient was seen and examined. 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- PLEASE F/U WITH OFFICE IN AM History of Any Multi-Drug Resistant Organisms: None Reported Past Surgical History: Coronary Bypass/CABG, Heart Catheterization With Stent, Joint Replacement Additional Past Surgical History / Comment(s): lt knee REPLACEMENT, FAVIOLA CATARACTS, EGD,COLONOSCOPY Past Anesthesia/Blood Transfusion Reactions: Previous Problems w/ Anesthesia, Motion Sickness Additional Past Anesthesia/Blood Transfusion Reaction / Comment(s): DIFFICULTY WAKING AND PT HAS SEVERE REACTIONS TO PROPOFOL AND DIPRIVAN Date of Last Stent Placement:: UNK Smoking Status: Former smoker - Past Family History Mother Family Medical History: Cancer Additional Family Medical History / Comment(s): AGE 77 FROM COLON CANCER Father Family Medical History: Myocardial Infarction ([place]) Additional Family Medical History / Comment(s): AGE 64 FROM [place] Medications and Allergies Home Medications Medication Instructions Recorded Confirmed Type Acetaminophen [Tylenol Arthritis] 650 mg PO DAILY PRN 07/10/18 07/10/18 History Apixaban [Eliquis] 5 mg PO BID 07/10/18 07/10/18 History Atorvastatin [Lipitor] 60 mg PO DAILY 07/10/18 07/10/18 History Cholecalciferol [Vitamin D3] 1,000 unit PO DAILY 07/10/18 07/10/18 History Fenofibrate Nanocrystallized 145 mg PO DAILY 07/10/18 07/10/18 History [Tricor] Ferrous Sulfate [Feosol] 325 mg PO DAILY 07/10/18 07/10/18 History Loratadine [Claritin] 10 mg PO DAILY 07/10/18 07/10/18 History Olmesartan [Benicar] 5 mg PO BID 07/10/18 07/10/18 History Omeprazole 20 mg PO DAILY 07/10/18 07/10/18 History Oxybutynin Xl [Ditropan Xl] 5 mg PO HS 07/10/18 07/10/18 History Pioglitazone [Actos] 15 mg PO DAILY 07/10/18 07/10/18 History Tamsulosin [Flomax] 0.4 mg PO HS 07/10/18 07/10/18 History Torsemide [Demadex] 5 mg PO Q48H 07/10/18 07/10/18 History glipiZIDE [Glucotrol] 10 mg PO AC-BRKFST 07/10/18 07/10/18 History levETIRAcetam [Keppra] 1,000 mg PO Q12HR 07/10/18 07/10/18 History sitaGLIPtin [Januvia] 100 mg PO DAILY 07/10/18 07/10/18 History Allergies Allergy/AdvReac Type Severity Reaction Status Date / Time propofol Allergy Severe Unknown Verified 07/10/18 19:50 codeine AdvReac Unknown Verified 07/10/18 19:50 enalapril AdvReac Unknown Verified 07/10/18 19:50 enalaprilat [From Vasotec] AdvReac Unknown Verified 07/10/18 19:50 Sulfa (Sulfonamide AdvReac Unknown Verified 07/10/18 19:50 Antibiotics) sulfadiazine AdvReac Unknown Verified 07/10/18 19:50 sulfamethoxazole AdvReac Unknown Verified 07/10/18 19:50 [From Bactrim] trimethoprim [From Bactrim] AdvReac Unknown Verified 07/10/18 19:50 Physical Exam Vitals: Vital Signs Temp Pulse Pulse Resp BP BP Pulse Ox 07/11/18 03:59 18 07/11/18 03:51 98.3 F 78 18 127/66 98 07/11/18 00:00 98.3 F 80 18 148/63 97 07/10/18 20:08 20 07/10/18 20:00 97.7 F 84 16 173/93 98 07/10/18 18:56 98.6 F 86 20 167/68 99 07/10/18 18:00 83 20 165/81 97 07/10/18 17:00 80 18 162/92 99 07/10/18 16:00 87 20 165/88 96 07/10/18 14:57 66 20 178/93 98 07/10/18 14:00 84 18 180/87 98 07/10/18 13:00 66 20 184/92 97 07/10/18 12:11 65 20 176/91 07/10/18 11:45 65 20 199/102 94 L 07/10/18 11:22 97.5 F L 91 18 186/87 97 Intake and Output 07/10/18 07/11/18 07/11/18 22:59 06:59 14:59 Other: Voiding Method Toilet Toilet # Voids 1 1 Results 07/10/18 11:40 07/10/18 11:40 Cardiac Enzymes 07/10/18 07/10/18 07/10/18 Range/Units 11:40 11:40 16:35 AST 25 (17-59) U/L CK-MB (CK-2) 0.8 (0.0-2.4) ng/mL Troponin I 0.015 0.016 (0.000-0.034) ng/mL 07/11/18 Range/Units 00:18 AST (17-59) U/L CK-MB (CK-2) (0.0-2.4) ng/mL Troponin I 0.016 (0.000-0.034) ng/mL Coagulation 07/10/18 Range/Units 11:40 PT 12.8 H (9.0-12.0) sec APTT 27.1 (22.0-30.0) sec CBC 07/10/18 Range/Units 11:40 WBC 6.8 (3.8-10.6) k/uL RBC 3.53 L (4.30-5.90) m/uL Hgb 10.3 L (13.0-17.5) gm/dL Hct 32.0 L (39.0-53.0) % Plt Count 190 (150-450) k/uL Comprehensive Metabolic Panel 07/10/18 Range/Units 11:40 Sodium 140 (137-145) mmol/L Potassium 3.7 (3.5-5.1) mmol/L Chloride 110 H (98-107) mmol/L Carbon Dioxide 22 (22-30) mmol/L BUN 16 (9-20) mg/dL Creatinine 1.15 (0.66-1.25) mg/dL Glucose 143 H (74-99) mg/dL Calcium 9.8 (8.4-10.2) mg/dL AST 25 (17-59) U/L ALT 32 (21-72) U/L Alkaline Phosphatase 42 (38-126) U/L Total Protein 6.3 (6.3-8.2) g/dL Albumin 3.8 (3.5-5.0) g/dL Current Medications Generic Name Dose Route Start Last Admin Trade Name Freq PRN Reason Stop Dose Admin Acetaminophen 650 mg 07/10/18 15:50 Tylenol Tab PO Q6HR PRN Mild Pain or Fever > 100.5 Apixaban 5 mg 07/10/18 21:00 07/10/18 22:02 Eliquis PO 5 mg BID [facility] Administration Atorvastatin Calcium 60 mg 07/10/18 21:30 07/10/18 22:03 Lipitor PO 60 mg DAILY [facility] Administration Cholecalciferol 1,000 unit 07/10/18 21:26 07/10/18 22:01 Vitamin D3 PO 1,000 unit DAILY [facility] Administration Fenofibrate 160 mg 07/11/18 09:00 Lofibra PO DAILY [facility] Ferrous Sulfate 325 mg 07/11/18 09:00 Feosol PO DAILY [facility] Glipizide 10 mg 07/11/18 07:30 Glucotrol PO AC-BRKFST [facility] Sodium Chloride 1,000 mls @ 20 mls/hr 07/10/18 16:00 07/10/18 22:08 Saline 0.9% IV Not Given .Q24H [facility] Ibuprofen 400 mg 07/10/18 15:50 Motrin PO Q6HR PRN Mild Pain or Fever > 100.5 Insulin Aspart 0 unit 07/10/18 21:00 07/10/18 22:03 Novolog SQ 4 unit ACHS [facility] Administration Protocol Ketorolac Tromethamine 30 mg 07/10/18 15:50 Toradol IVP 07/15/18 15:51 Q6HR PRN Moderate Pain Levetiracetam 1,000 mg 07/10/18 21:00 07/10/18 22:02 Keppra PO 1,000 mg Q12HR [facility] Administration Linagliptin 5 mg 07/11/18 09:00 Tradjenta PO DAILY [facility] Loratadine 10 mg 07/11/18 09:00 Claritin PO DAILY [facility] Lorazepam 0.5 mg 07/10/18 15:50 07/10/18 22:03 Ativan IV 0.5 mg Q6HR PRN Administration Anxiety Losartan Potassium 25 mg 07/10/18 21:00 07/10/18 22:02 Cozaar PO 25 mg BID [facility] Administration Meclizine HCl 25 mg 07/10/18 23:10 Antivert PO BID PRN Vertigo Miscellaneous Information 1 each 07/10/18 11:45 07/10/18 11:50 Rx Info: Iv Contrast Was Given MISCELLANE 07/12/18 11:46 1 each DAILY PRN Administration Per Protocol Morphine Sulfate 4 mg 07/10/18 15:50 Morphine Sulfate (Inj) IV Q4HR PRN Severe Pain Naloxone HCl 0.2 mg 07/10/18 15:50 Narcan IV Q2M PRN Opioid Reversal Non-Formulary Medication 5 mg 07/10/18 20:30 07/10/18 22:08 Torsemide [Demadex] PO Not Given Q48H [facility] Ondansetron HCl 4 mg 07/10/18 15:50 Zofran IVP Q8HR PRN Nausea And Vomiting Oxybutynin Chloride 5 mg 07/10/18 21:00 07/10/18 22:02 Ditropan Xl PO 5 mg HS [facility] Administration Pantoprazole Sodium 40 mg 07/10/18 21:25 07/10/18 22:01 Protonix IV 40 mg DAILY [facility] Administration Pioglitazone HCl 15 mg 07/10/18 21:24 07/10/18 22:02 Actos PO 15 mg DAILY [facility] Administration Tamsulosin HCl 0.4 mg 07/10/18 21:00 07/10/18 22:02 Flomax PO 0.4 mg HS [facility] Administration Intake and Output 07/10/18 07/11/18 07/11/18 22:59 06:59 14:59 Other: Voiding Method Toilet Toilet # Voids 1 1 07/10/18 11:40 07/10/18 11:40
[2018-07-11 12:16] VITALS: BP 165/71; PULSE 88; TEMP 97.9
== END 2018-07-11 14:51 | disposition home or self-care (01) ==
LOC: EC 11:18 → 3NMEDONC 15:35 → 1SOBS 17:35
PROVIDERS: ADMIT Internal Medicine; ATTEND Internal Medicine
DX: R42 Dizziness and giddiness (principal); R55 Syncope and collapse; R61 Generalized hyperhidrosis; I48.0 Paroxysmal atrial fibrillation; I25.10 Atherosclerotic heart disease of native coronary artery without angina pectoris; E11.9 Type 2 diabetes mellitus without complications; I11.9 Hypertensive heart disease without heart failure; E78.5 Hyperlipidemia, unspecified; K21.9 Gastro-esophageal reflux disease without esophagitis; K58.9 Irritable bowel syndrome, unspecified; J44.9 Chronic obstructive pulmonary disease, unspecified; M19.90 Unspecified osteoarthritis, unspecified site; N42.9 Disorder of prostate, unspecified; H91.90 Unspecified hearing loss, unspecified ear; Z95.1 Presence of aortocoronary bypass graft; I45.10 Unspecified right bundle-branch block; R94.31 Abnormal electrocardiogram [ECG] [EKG]; Z95.5 Presence of coronary angioplasty implant and graft; Z79.01 Long term (current) use of anticoagulants; Z87.891 Personal history of nicotine dependence; Z80.0 Family history of malignant neoplasm of digestive organs; Z79.899 Other long term (current) drug therapy; Z79.84 Long term (current) use of oral hypoglycemic drugs; Z88.6 Allergy status to analgesic agent; Z88.5 Allergy status to narcotic agent; Z88.2 Allergy status to sulfonamides; Z88.8 Allergy status to other drugs, medicaments and biological substances; E66.9 Obesity, unspecified; Z68.29 Body mass index [BMI] 29.0-29.9, adult
CPT/HCPCS: 93005 ×2; 96375; 96376 ×2; 96361; 96374; 99285; 36415; 85379; 80053; 82550; 82553; 83735; 84484 ×2; 85025; 85610; 85730; 81003; 83036; 70496; 71260; G0378 ×2; J2060; C9113 ×2; Q9967

== ENCOUNTER 2018-08-04 05:27 | Inpatient (IN) | payer MEDICARE, OTHER ==
[~2018-08-04 05:27] MED LIST: ACETAMINOPHEN TAB 500 MG TAB PO ONE; DEXAMETHASONE SOD PHOSPHATE 10 MG/ML 1 ML VIAL IV ONE; HYDROmorphone 0.5 MG/0.5 ML SYRINGE IVP PRN; LIDOCAINE 1% 20 ML VIAL (10MG/ML) FOR IV START INTRADERMA PRN; MELOXICAM 7.5 MG TAB PO ONE; MIDAZOLAM (PF) 2 MG/2 ML VIAL IV PRN; ONDANSETRON 4 MG/2 ML VIAL IVP ONE; TRANEXAMIC ACID 1,000 MG in SODIUM CHLORIDE 0.9% 100 ML IVPB ONE; ceFAZolin IN SWFI 2 GM/20 ML SYRINGE IVP ONE; fentaNYL (PF) 50 MCG/ML 2 ML AMP IV PRN
[2018-08-04 06:19] LABS: Glucose,Whole Blood 108 mg/dL (75-99)
[2018-08-04] MEDS: LACTATED RINGERS 1,000 ML IV SCH ×2 (06:21→17:33)
[2018-08-04] MEDS ORDERED: ROPIVACAINE 246.25 MG, EPINEPHrine 0.5 MG, KETOROLAC 30 MG, cloNIDine HCL/PF 80 MCG, WA... MISCELLANE ONE ×5 (06:30)
[2018-08-04] MEDS ORDERED: NALOXONE 0.4 MG/ML 1 ML VIAL IV PRN (06:56)
[2018-08-04] MEDS ORDERED: NA PHOS,M-B/NA PHOS,DI-BA 133 ML ENEMA RECTAL PRN (06:56)
[2018-08-04] MEDS ORDERED: BISACODYL 10 MG SUPP RECTAL PRN (06:56)
[2018-08-04] MEDS ORDERED: ONDANSETRON 4 MG/2 ML VIAL IVP PRN (06:56)
[2018-08-04] MEDS ORDERED: HYDROcodone/APAP 5-325MG 1 EACH TAB PO PRN ×2 (06:56)
[2018-08-04] MEDS ORDERED: HYDROmorphone 0.5 MG/0.5 ML SYRINGE IVP PRN ×3 (06:56)
[2018-08-04] MEDS ORDERED: MAGNESIUM HYDROXIDE 2,400 MG/10 ML CUP PO PRN (06:56)
[2018-08-04] MEDS ORDERED: diphenhydrAMINE 50 MG/ML 1 ML VIAL ONE (07:00)
[2018-08-04] MEDS ORDERED: SODIUM CHLORIDE 0.9% 100 ML BAG ONE (07:00)
[2018-08-04] MEDS ORDERED: MIDAZOLAM 2 MG/2 ML VIAL ONE (07:00)
[2018-08-04] MEDS ORDERED: fentaNYL (PF) 50 MCG/ML 2 ML AMP ONE (07:00)
[2018-08-04] MEDS ORDERED: TRANEXAMIC ACID 1,000 MG/10 ML VIAL ONE (07:00)
[2018-08-04] MEDS ORDERED: ceFAZolin 3,000 MG in SODIUM CHLORIDE 0.9% IRRIGATIO 3,000 ML IRRIGATION ONE (07:05)
[2018-08-04] MEDS ORDERED: ROPIVACAINE 1,100 MG, SODIUM CHLORIDE 0.9% 500 ML 330 ML MISCELLANE PRN ×2 (07:15)
[2018-08-04] MEDS ORDERED: LACTATED RINGERS 1,000 ML IV ONE (08:10)
--- NOTE | 2018-08-04 08:29 | P.OP ---
Date of Procedure: 08/04/18 Preoperative Diagnosis: Severe osteoarthritis right knee Postoperative Diagnosis: Severe osteoarthritis right knee Procedure(s) Performed: Right total knee arthroplasty Implants: Jones and Nephew Journey II CR Oxinium cruciate retaining femoral component size 7, right Jones & Nephew Journey right nonporous tibial baseplate size 7 Jones & Nephew Journey II, XLPE Deep Dished articular insert, size 13 mm, Size 7 -8 right Jones & Nephew Journey BCS resurfacing oval patellar component, 35 mm All components were cemented using Palacos R bone cement.. The articulation is Oxinium on polyethylene. Anesthesia: spinal Surgeon: Chandler Parks Splunk Consultant #1: Carolyn Samuels Estimated Blood Loss (ml): 50 Pathology: other (Bone and cartilage) Condition: stable Disposition: PACU Indications for Procedure: After failure of conservative treatment we discussed the surgical and nonsurgical treatment options at length. Patient wishes to proceed with a total knee arthroplasty. Complications specific to this procedure were discussed at length, including but not limited to infection, bleeding, stiffness , and nerve injury. Patient is aware of all these complications and informed consent was obtained Operative Findings: The operative findings are consistent with severe osteoarthritis of the right knee Description of Procedure: Patient was seen in the preoperative area consent was reviewed and operative site was marked with a skin marker. An adductor canal pain catheter was placed by anesthesia in the preoperative area. Patient was then brought to the operating room and given preoperative antibiotics intravenously. A spinal anesthetic was administered by the anesthesia department. A tourniquet was placed on the upper thigh and the lower extremity was prepped and draped in usual sterile fashion. A gram of transexamic acid was given. A universal timeout was then performed which confirmed the patient's name, surgical site, ALLERGIES, and consent. The lower extremity was then exsanguinated and tourniquet was inflated to 250 mmHg. A standard and anterior midline approach to the knee was performed. The skin and subcutaneous tissue was dissected down to the patellar tendon. A medial parapatellar arthrotomy was then performed. The knee was then extended, the patellar was everted, and the knee was again flexed. Anterior horns of both menisci were excised, and a release was performed to the posterior medial aspect of the knee. On gross visual inspection, there was complete loss of articular cartilage in the medial and patellofemoral joint spaces. There was also significant cartilage damage in the lateral compartment. There were multiple periarticular osteophytes which were then removed with a Ronguer. The femoral canal was then opened with the appropriate drill, and the intramedullary femoral cutting guide was then placed and set for 5 of valgus. The distal femoral cutting block was then pinned in place, and the distal femur was then cut. The cutting block was then removed and the cut was checked for flatness. Next, the sizing guide was then placed and set for 3 external rotation based off of the epicondylar axis and Whitesides line. After the femur was sized, the appropriate 4-in-1 cutting block was then pinned in place. The anterior condyles were cut without notching. The posterior and chamfer cuts were performed while protecting the collateral ligaments. The cutting block was then removed, and the femoral canal was plugged with autologous bone. Attention was then directed to the tibia. The remaining ACL was removed with a Ronguer, and the tibia was then gently subluxed forward with a large bent knee retractor. Any remaining menisci was excised. The posterior lateral corner was cauterized in order to cauterize the lateral geniculate artery. The extra medullary tibial cutting guide was then placed, set for the appropriate rotation , slope, and depth of resection. The proximal tibia cutting guide was then pinned in place. Proximal tibia was then cut and sized. Next trials were then placed with the appropriate-sized insert. The knee was able to fully extend and flex to 130 and was stable throughout all range of motion. The knee was then extended, patella everted. Patella was then measured, and then using an osteotomy guide, the patella was cut at the appropriate level. The patella was then measured and drilled and the patella trial was then placed. The knee was then taken through range of motion with the patella trial and the patella tracked normally. The knee was then extended patella trial was then removed and the patella was everted. Knee was then flexed and lug holes were drilled through the femoral trial and the femoral trial was then removed. The tibial was then exposed, and the tibial broach guide was then pinned in place after it was set for the appropriate rotation to allow for the most coverage without overhang. The tibia was then reamed and broached. The cut surfaces of bone were then irrigated with pulsatile lavage. The posterior structures were injected with the ropivacaine solution. The knee was also irrigated with Irrisept solution. The components were then opened, the cement was mixed, and the components were then cemented in place. The cement was allowed to harden with the knee in full extension. While the cement was hardening, the remaining soft tissues were then injected with a ropivacaine solution, which consisted of 246.25 mg of ropivacaine, 0.5 mg of epinephrine, 30 mg of Toradol, 80 g of clonidine, and 48.45 mL of sterile water, for a total of 100 mL of fluid injected. After the cemented hardened. The tourniquet was released, and hemostasis was obtained. A second gram of transexamic acid was given. The knee was again irrigated. The knee was again taken through range of motion and found to be stable throughout all range of motion of 0-130 , and the patella tracked normally. The fascia was then closed with #2 strata fix suture. The subcutaneous tissue was closed with 3-0 Vicryl and 3-0 strata fix. Dermabond glue was used for the skin and placed with the knee in flexion. The patient was placed in a sterile silver dressing. Patient was then transferred to recovery room in stable condition. The infertility medical assistant JOHANNA Toth was required due the complexity surgery and the need for a skilled surgical services asst. She assisted in positioning, draping, retraction, and closure of the wound.
--- NOTE | 2018-08-04 08:39 | P.ONQ ---
Anesthesiology Proc Note - PNB - Peripheral Nerve Block Performed Right Adductor Canal Infusion Time Out Performed: Yes (637) Procedure Start Time: 06:38 Procedure Stop Time: 06:45 Indication: Acute Post-Operative Pain, Dx/Pain Location (Right Knee Pain), Requested by physician Sedation Type: Sedate with meaningful contact maintained Preparation: Sterile Prep Position: Supine Catheter: Indwelling Needle Types: On-Q Needle Size: 100mm (4") Needle Gauge: 21 Technique: Ultrasound Injectate: 0.5% Ropivacaine (see comment for volume) (20ml) Blood Aspirated: No Pain Paresthesia on Injection Noted: No Resistance on Injection: Normal Events: Uneventful and Well Tolerated
--- NOTE | 2018-08-04 09:38 | XR ---
EXAMINATION TYPE: XR knee limited RT DATE OF EXAM: 08/04/2018 COMPARISON: None HISTORY: Evaluation for postop abnormality in alignment TECHNIQUE: 2 view right knee FINDINGS: Tibial and femoral components have been placed. Postsurgical changes are present through th e knee. No acute fractures are evident. There are vascular clips present. Vascular calcification is noted. IMPRESSION: 1. No acute fractures post knee replacement.
[2018-08-04 09:55] LABS: Glucose,Whole Blood 137 mg/dL (75-99)
[2018-08-04] MEDS: SODIUM CHLORIDE 0.9% 1,000 ML IV SCH ×2 (17:33→22:46)
[2018-08-04 17:52] VITALS: BMI 28.8
[2018-08-04] MEDS: ceFAZolin IN SWFI 2 GM/20 ML SYRINGE IVP SCH (17:56)
[2018-08-04] MEDS ORDERED: SENNOSIDES-DOCUSATE SODIUM 1 EACH TAB PO SCH (21:00)
[2018-08-04] MEDS ORDERED: TAMSULOSIN 0.4 MG CAP.ER.24H PO SCH (21:00)
[2018-08-04] MEDS ORDERED: OXYBUTYNIN XL 5 MG TAB.ER.24 PO SCH (21:00)
[2018-08-04 21:39] VITALS: RESP 16
[2018-08-04] MEDS: LOSARTAN 25 MG TAB PO SCH (22:01)
[2018-08-04] MEDS: levETIRAcetam 500 MG TAB PO SCH (22:02)
[2018-08-05] MEDS: ceFAZolin IN SWFI 2 GM/20 ML SYRINGE IVP SCH (00:05)
--- NOTE | 2018-08-05 00:42 | P.CONS ---
History of Present Illness - Reason for Consult Consult date: 08/04/18 Medical management of hypertension, hyperlipidemia and other multiple medic - Chief Complaint Right total knee arthroplasty - History of Present Illness Patient is a 82-year-old male with a known history of paroxysmal atrial fibrillation on anticoagulation, coronary artery disease with history of CABG and stent placement, diabetes type 2, hypertension, hyperlipidemia, GERD, osteoarthritis and prostate disorder was admitted to hospital for elective right total knee arthroplasty. Patient was recently seen in the hospital due to dizziness and vertigo which is thought to be prognosis from positional vertigo. Currently resolved now area no complaints of chest pain or shortness of breath. No nausea vomiting or abdominal pain. Pain is fairly controlled. Currently denied any other complaints at this time. Blood pressure is elevated postoperatively. No fever no chills. No cough or sputum production. Review of Systems Constitutional: Patient denies any fever or chills . No generalized weakness or weight loss. Abdomen: Patient denied nausea vomiting and diarrhea and abdominal pain. Cardiovascular: Patient denies any chest pain or short of breath no palpitations. Respiratory: patient denied any cough is from production. No shortness of breath Neurologic: Patient denied any numbness or tingling headache. Musculoskeletal: Patient denies any complaints of joint swelling or deformity. Skin: Negative Psychiatric: Negative Endocrine: No heat or cold intolerance. No recent weight gain. Genitourinary: No dysuria or hematuria. 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, stage 3 kidney disease, vertigo History of Any Multi-Drug Resistant Organisms: None Reported Past Surgical History: Coronary Bypass/CABG, Heart Catheterization With Stent, Joint Replacement Additional Past Surgical History / Comment(s): left knee, left baby finger removed, bilat cataracts Past Anesthesia/Blood Transfusion Reactions: Previous Problems w/ Anesthesia, Postoperative Nausea & Vomiting (PONV) Additional Past Anesthesia/Blood Transfusion Reaction / Comm: severe reaction to propofol and diprivan, causes stroke Date of Last Stent Placement:: unk Smoking Status: Former smoker - Past Family History Mother Family Medical History: Cancer Additional Family Medical History / Comment(s): AGE 77 FROM COLON CANCER Father Family Medical History: Myocardial Infarction ([place]) Additional Family Medical History / Comment(s): AGE 64 FROM [place] Medications and Allergies Home Medications Medication Instructions Recorded Confirmed Type Apixaban [Eliquis] 5 mg PO BID 07/10/18 08/04/18 History Atorvastatin [Lipitor] 60 mg PO DAILY 07/10/18 08/04/18 History Cholecalciferol [Vitamin D3] 1,000 unit PO DAILY 07/10/18 08/04/18 History Fenofibrate Nanocrystallized 145 mg PO DAILY 07/10/18 08/04/18 History [Tricor] Ferrous Sulfate [Iron (65 MG 325 mg PO DAILY 07/10/18 08/04/18 History Elemental)] Loratadine [Claritin] 10 mg PO HS 07/10/18 08/04/18 History Olmesartan [Benicar] 5 mg PO BID 07/10/18 08/04/18 History Omeprazole 20 mg PO DAILY 07/10/18 08/04/18 History Oxybutynin Xl [Ditropan XL] 5 mg PO HS 07/10/18 08/04/18 History Pioglitazone [Actos] 15 mg PO DAILY 07/10/18 08/04/18 History Tamsulosin [Flomax] 0.4 mg PO HS 07/10/18 08/04/18 History Torsemide [Demadex] 5 mg PO Q48H 07/10/18 08/04/18 History glipiZIDE [Glucotrol] 10 mg PO AC-BRKFST 07/10/18 08/04/18 History levETIRAcetam [Keppra] 1,000 mg PO Q12HR 07/10/18 08/04/18 History sitaGLIPtin [Januvia] 100 mg PO W/LUNCH 07/10/18 08/04/18 History Ergocalciferol [Vitamin D2] 50,000 unit PO QMONTH 07/29/18 08/04/18 History Allergies Allergy/AdvReac Type Severity Reaction Status Date / Time propofol Allergy Severe stroke Verified 08/04/18 14:21 codeine AdvReac headach Verified 08/04/18 14:21 enalapril AdvReac Unknown Verified 08/04/18 14:21 enalaprilat [From Vasotec] AdvReac Unknown Verified 08/04/18 14:21 Sulfa (Sulfonamide AdvReac Unknown Verified 08/04/18 14:21 Antibiotics) sulfadiazine AdvReac Unknown Verified 08/04/18 14:21 sulfamethoxazole AdvReac Unknown Verified 08/04/18 14:21 [From Bactrim] trimethoprim [From Bactrim] AdvReac Unknown Verified 08/04/18 14:21 Physical Exam Vitals: Vital Signs Temp Pulse Pulse Pulse Resp BP BP 08/04/18 13:49 98.0 F 88 17 168/83 08/04/18 13:00 94 16 167/73 08/04/18 11:57 79 16 167/75 08/04/18 11:30 80 16 177/81 08/04/18 11:00 78 16 167/78 08/04/18 10:45 63 16 164/78 08/04/18 10:30 67 16 169/80 08/04/18 10:15 64 16 153/71 08/04/18 10:00 64 18 174/72 08/04/18 09:42 64 16 155/69 08/04/18 09:26 64 16 175/68 08/04/18 09:11 86 16 165/68 08/04/18 08:56 98.2 F 94 16 163/62 08/04/18 06:05 97.4 F L 68 16 171/80 Pulse Ox 08/04/18 13:49 98 08/04/18 13:00 96 08/04/18 11:57 99 08/04/18 11:30 99 08/04/18 11:00 98 08/04/18 10:45 95 08/04/18 10:30 92 L 08/04/18 10:15 97 08/04/18 10:00 98 08/04/18 09:42 93 L 08/04/18 09:26 98 08/04/18 09:11 97 08/04/18 08:56 94 L 08/04/18 06:05 99 Intake and Output 08/03/18 08/04/18 08/04/18 22:59 06:59 14:59 Intake Total 400 951 Output Total 50 Balance 400 901 Intake: IV 400 951 Output: Estimated Blood Loss 50 PHYSICAL EXAMINATION: Patient is lying in the bed comfortably, no acute distress, awake alert and oriented.. HEENT: Normocephalic. Neck is supple. Pupils reactive. Nostrils clear. Oral cavity is moist. Ears reveal no drainage. Neck reveals no JVD, carotid bruits, or thyromegaly. CHEST EXAMINATION: Trachea is central. Symmetrical expansion. Lung celaya clear to auscultation and percussion. CARDIAC: Normal S1, S2 with no gallops. No murmurs ABDOMEN: Soft. Bowel sounds normal. No organomegaly. No abdominal bruits. Extremities: reveal no edema. No clubbing or cyanosis Neurologically awake, alert, oriented x3 with well-coordinated movements. No focal deficits noted Skin: No rash or skin lesions. Psychiatric: Coperative. Nonsuicidal Musculoskeletal: No joint swelling or deformity. Right knee surgical site is intact.. Results Labs: Abnormal Lab Results - Last 24 Hours (Table) 08/04/18 08/04/18 Range/Units 06:16 09:37 POC Glucose (mg/dL) 108 H 137 H (75-99) mg/dL Assessment and Plan Assessment: Right total knee arthroplasty. Postoperative day 0 Paroxysmal atrial fibrillation on anticoagulation with Eliquis. Rate controlled. Coronary artery disease with history of CABG and also stent placement Recent admission with dizziness and vertigo. Resolved now. Hypertension. Uncontrolled. Diabetes type 2. [id number]. Hyperlipidemia and hypertriglyceridemia. Osteoarthritis Prostate disorder/BPH Degenerative joint disease and history of T1 back injury Previous history of smoking Hard of hearing DVT prophylaxis currently on Eliquis. Plan: Patient be continued on pain management and bowel regimen. Encourage ambulation and incentive spirometry. Continue with anticoagulation. Patient be continued on home blood pressure medications including Benicar and torsemide. Titrate as needed. Continue with hypoglycemic medications as per home dose. Monitor CBG before meals at bedtime. Continue to monitor closely. Further recommendations based on the clinical course. Thank you for your consult. Time with Patient: Greater than 30
[2018-08-05] MEDS ORDERED: TORSEMIDE 20 MG TAB PO SCH ×2 (01:00→08:00)
[2018-08-05 07:30] VITALS: BP 162/76; PULSE 71; TEMP 98.1
[2018-08-05] MEDS ORDERED: glipiZIDE 10 MG TAB PO SCH (07:30)
[2018-08-05] MEDS: LOSARTAN 25 MG TAB PO SCH (07:30)
[2018-08-05] MEDS: levETIRAcetam 500 MG TAB PO SCH (07:31)
[2018-08-05 08:26] LABS: Basophils % (A) 0 %; Eosinophils % (A) 0 %; HCT 30.1 % (39.0-53.0); HGB 9.3 gm/dL (13.0-17.5); Hypochromasia Moderate; Lymphocytes # (A) 0.8 k/uL (1.0-4.8); Lymphocytes % (A) 9 %; MCH 29.7 pg (25.0-35.0); MCHC 30.8 g/dL (31.0-37.0); Mean Platelet Volume 7.9; Monocytes # (A) 0.8 k/uL (0-1.0); Monocytes % (A) 9 %; Neutrophils # (A) 7.3 k/uL (1.3-7.7); Neutrophils % (A) 81 %; Platelet Count 169 k/uL (150-450); RBC 3.12 m/uL (4.30-5.90); RDW 15.4 % (11.5-15.5); WBC 9.1 k/uL (3.8-10.6)
[2018-08-05 08:28] LABS: MCV 96.6 fL (80.0-100.0)
[2018-08-05] MEDS: LACTATED RINGERS 1,000 ML IV SCH (08:52)
[2018-08-05] MEDS ORDERED: CHOLECALCIFEROL 1,000 UNIT TAB PO SCH (09:00)
[2018-08-05] MEDS ORDERED: PIOGLITAZONE 15 MG TAB PO SCH (09:00)
[2018-08-05] MEDS ORDERED: APIXABAN 5 MG TAB PO SCH (09:00)
[2018-08-05] MEDS ORDERED: ATORVASTATIN 20 MG TAB PO SCH (09:00)
[2018-08-05] MEDS ORDERED: PANTOPRAZOLE 40 MG TABLET PO SCH (09:00)
--- NOTE | 2018-08-05 09:34 | P.DS ---
Providers Date of admission: 08/04/18 05:27 Expected date of discharge: 08/05/18 Attending physician: Chandler Parks Consults: 08/04/18 06:56 Consult Physician Routine Consulting Provider: Arnel Paz Consult Reason/Comments: medical mangement Do you want consulting provider notified?: Yes Primary care physician: Marce Reilly - Discharge Diagnosis(es) (1) S/P total knee arthroplasty Current Visit: Yes Status: Acute (2) Osteoarthritis of right knee Current Visit: Yes Status: Acute Hospital Course: This is a 82-year-old male right with known history of degenerative arthritis of the right knee. The patient presents for evaluation. After discussion and consideration patient elects to proceed with total knee arthroplasty. The patient is seen preoperatively by Dr. Parks and medically cleared for surgery by their primary care physician. Patient is admitted to [facility] on 08/04/2018 for total knee arthroplasty. The procedures performed without complication or sequelae. The patient is doing well postoperatively. Labs and vital signs are stable on day of discharge. On day of discharge patient's knee incision is healing well. There is minimal erythema. There is no drainage noted at this time. There is minimal soft tissue swelling to the knee. Patient has full foot and ankle motion without difficulty or pain. Neurovascular status to the right lower extremity is intact. Patient is discharged home in good condition. Please see med rec for accurate list of home medications. Plan - Discharge Summary Discharge Rx Participant: Yes New Discharge Prescriptions: New Aspirin 325 mg PO BID #60 tab HYDROcodone/APAP 5-325MG [[place] 5-325] 1 - 2 tab PO Q6HR PRN #56 tab PRN Reason: Pain Sennosides [Senokot] 1 tab PO BID #60 tablet No Action levETIRAcetam [Keppra] 1,000 mg PO Q12HR Atorvastatin [Lipitor] 60 mg PO DAILY Tamsulosin [Flomax] 0.4 mg PO HS Ferrous Sulfate [Iron (65 MG Elemental)] 325 mg PO DAILY Oxybutynin Xl [Ditropan XL] 5 mg PO HS Apixaban [Eliquis] 5 mg PO BID Torsemide [Demadex] 5 mg PO Q48H Pioglitazone [Actos] 15 mg PO DAILY Omeprazole 20 mg PO DAILY Loratadine [Claritin] 10 mg PO HS Cholecalciferol [Vitamin D3] 1,000 unit PO DAILY glipiZIDE [Glucotrol] 10 mg PO AC-BRKFST Olmesartan [Benicar] 5 mg PO BID Fenofibrate Nanocrystallized [Tricor] 145 mg PO DAILY sitaGLIPtin [Januvia] 100 mg PO W/LUNCH Ergocalciferol [Vitamin D2] 50,000 unit PO QMONTH Discharge Medication List Apixaban [Eliquis] 5 mg PO BID 07/10/18 [History] Atorvastatin [Lipitor] 60 mg PO DAILY 07/10/18 [History] Cholecalciferol [Vitamin D3] 1,000 unit PO DAILY 07/10/18 [History] Fenofibrate Nanocrystallized [Tricor] 145 mg PO DAILY 07/10/18 [History] Ferrous Sulfate [Iron (65 MG Elemental)] 325 mg PO DAILY 07/10/18 [History] Loratadine [Claritin] 10 mg PO HS 07/10/18 [History] Olmesartan [Benicar] 5 mg PO BID 07/10/18 [History] Omeprazole 20 mg PO DAILY 07/10/18 [History] Oxybutynin Xl [Ditropan XL] 5 mg PO HS 07/10/18 [History] Pioglitazone [Actos] 15 mg PO DAILY 07/10/18 [History] Tamsulosin [Flomax] 0.4 mg PO HS 07/10/18 [History] Torsemide [Demadex] 5 mg PO Q48H 07/10/18 [History] glipiZIDE [Glucotrol] 10 mg PO AC-BRKFST 07/10/18 [History] levETIRAcetam [Keppra] 1,000 mg PO Q12HR 07/10/18 [History] sitaGLIPtin [Januvia] 100 mg PO W/LUNCH 07/10/18 [History] Ergocalciferol [Vitamin D2] 50,000 unit PO QMONTH 07/29/18 [History] Aspirin 325 mg PO BID #60 tab 08/05/18 [Rx] HYDROcodone/APAP 5-325MG [[place] 5-325] 1 - 2 tab PO Q6HR PRN #56 tab 08/05/18 [ Rx] Sennosides [Senokot] 1 tab PO BID #60 tablet 02/19/19 [Rx] Follow up Appointment(s)/Referral(s): Chandler Parks DO [Doctor of Osteopathic Medicine] - 2 Weeks Ambulatory/Diagnostic Orders: Continuous Passive Motion (CPM) Machine [DME.AMB1] Time Frame: 3 Weeks, Location : None Selected Activity/Diet/Wound Care/Special Instructions: Weightbearing as tolerated with a walker. CPM 5-6h daily. Leave dressing intact. May be removed by home care nurse or by patient in 10 days. May shower with dressing on. Please follow up with [facility] and call with any questions or concerns, . Discharge Disposition: HOME WITH HOME HEALTH SERVICES
--- NOTE | 2018-08-05 10:39 | P.PN ---
Progress Note - Text Progress Note Date: 08/05/18 The patient is status post[ right] adductor canal catheter placement. The catheter was placed for postoperative pain control, status post total [Right Knee] arthroplasty. Ropivacaine 0.2% is infusing at[ 4] mLs per hour. The patient has no complaints of[ right] lower extremity numbness or weakness. Patient's VAS score is[ 5]-10. Assessment: Patient's adductor canal catheter is in place and working appropriately. Plan: continue infusion and adjust it as needed.
[2018-08-05] MEDS ORDERED: LINAGLIPTIN 5 MG TABLET PO SCH (12:30)
--- NOTE | 2018-08-05 23:28 | P.PN ---
Subjective Progress Note Date: 08/05/18 Principal diagnosis: Right knee total arthroplasty Patient is a 82-year-old male with a known history of paroxysmal atrial fibrillation on anticoagulation, coronary artery disease with history of CABG and stent placement, diabetes type 2, hypertension, hyperlipidemia, GERD, osteoarthritis and prostate disorder was admitted to hospital for elective right total knee arthroplasty. Patient was recently seen in the hospital due to dizziness and vertigo which is thought to be prognosis from positional vertigo. Currently resolved now area no complaints of chest pain or shortness of breath. No nausea vomiting or abdominal pain. Pain is fairly controlled. Currently denied any other complaints at this time. Blood pressure is elevated postoperatively. No fever no chills. No cough or sputum production. 06/04/2019 Patient denied any new complaints today. No complaints of chest pain or shortness of breath. Right knee pain is much improved. Able to ambulate without short of breath. No headache or dizziness or lightheadedness. No vertigo. Otherwise patient is stable to be discharged home. Discharge medication reconciliation was done. Objective - Vital Signs Vital signs: Vital Signs Temp 98.1 F 08/05/18 07:00 Pulse 71 08/05/18 07:00 Resp 16 08/05/18 08:00 BP 162/76 08/05/18 07:00 Pulse Ox 96 08/05/18 07:00 Intake & Output 08/04/18 08/05/18 08/05/18 18:59 06:59 18:59 Intake Total 1311 540 354 Output Total 50 Balance 1261 540 354 Intake: IV 951 Oral 360 540 354 Output: Estimated Blood Loss 50 Other: # Voids 2 - Exam PHYSICAL EXAMINATION: Patient is lying in the bed comfortably, no acute distress, awake alert and oriented.. HEENT: Normocephalic. Neck is supple. Pupils reactive. Nostrils clear. Oral cavity is moist. Ears reveal no drainage. Neck reveals no JVD, carotid bruits, or thyromegaly. CHEST EXAMINATION: Trachea is central. Symmetrical expansion. Lung celaya clear to auscultation and percussion. CARDIAC: Normal S1, S2 with no gallops. No murmurs ABDOMEN: Soft. Bowel sounds normal. No organomegaly. No abdominal bruits. Extremities: reveal no edema. No clubbing or cyanosis Neurologically awake, alert, oriented x3 with well-coordinated movements. No focal deficits noted Skin: No rash or skin lesions. Psychiatric: Coperative. Nonsuicidal Musculoskeletal: No joint swelling or deformity. Right knee surgical site intact. No leg swelling. Normal range of motion. - Labs CBC & Chem 7: 08/05/18 06:54 Labs: Abnormal Lab Results - Last 24 Hours (Table) 08/05/18 Range/Units 06:54 RBC 3.12 L (4.30-5.90) m/uL Hgb 9.3 L (13.0-17.5) gm/dL Hct 30.1 L (39.0-53.0) % MCHC 30.8 L (31.0-37.0) g/dL Lymphocytes # 0.8 L (1.0-4.8) k/uL Assessment and Plan Assessment: Right total knee arthroplasty. Postoperative day 1 Paroxysmal atrial fibrillation on anticoagulation with Eliquis. Rate controlled. Coronary artery disease with history of CABG and also stent placement Recent admission with dizziness and vertigo. Resolved now. Hypertension. Uncontrolled. Diabetes type 2. [id number]. Hyperlipidemia and hypertriglyceridemia. Osteoarthritis Prostate disorder/BPH Degenerative joint disease and history of T1 back injury Previous history of smoking Hard of hearing DVT prophylaxis currently on Eliquis. Plan: Patient be continued on pain management and bowel regimen. Encourage ambulation and incentive spirometry. Continue with anticoagulation. Patient be continued on home blood pressure medications including Benicar and torsemide. Titrate as needed. Continue with hypoglycemic medications as per home dose. Monitor CBG before meals at bedtime. Continue to monitor closely. Patient is being discharged home today. Time with Patient: Greater than 30
== END 2018-08-05 15:07 | disposition home health service (06) | DRG 470 ==
LOC: 2ORMAIN 05:27 → 4SSUR 13:26
PROVIDERS: ADMIT Orthopaedic Surgery; ATTEND Orthopaedic Surgery
PROC: 0SRC069 Replacement of Right Knee Joint with Oxidized Zirconium on Polyethylene Synthetic Substitute, Cemented, Open Approach (ICD-10-PCS; principal; 2018-08-04 07:00)
DX: M17.11 Unilateral primary osteoarthritis, right knee (principal); E11.9 Type 2 diabetes mellitus without complications; E78.1 Pure hyperglyceridemia; E78.5 Hyperlipidemia, unspecified; G40.909 Epilepsy, unspecified, not intractable, without status epilepticus; H91.90 Unspecified hearing loss, unspecified ear; I10 Essential (primary) hypertension; I25.10 Atherosclerotic heart disease of native coronary artery without angina pectoris; I48.0 Paroxysmal atrial fibrillation; K21.9 Gastro-esophageal reflux disease without esophagitis; N40.0 Benign prostatic hyperplasia without lower urinary tract symptoms; F17.200 Nicotine dependence, unspecified, uncomplicated; Z96.652 Presence of left artificial knee joint; Z79.01 Long term (current) use of anticoagulants; Z79.84 Long term (current) use of oral hypoglycemic drugs; Z79.899 Other long term (current) drug therapy; Z80.0 Family history of malignant neoplasm of digestive organs; Z82.49 Family history of ischemic heart disease and other diseases of the circulatory system; Z86.73 Personal history of transient ischemic attack (TIA), and cerebral infarction without residual deficits; Z95.1 Presence of aortocoronary bypass graft; Z95.5 Presence of coronary angioplasty implant and graft; Z88.4 Allergy status to anesthetic agent; Z88.5 Allergy status to narcotic agent; Z88.2 Allergy status to sulfonamides; Z88.8 Allergy status to other drugs, medicaments and biological substances
CPT/HCPCS: 85025; 88300

== ENCOUNTER 2018-09-27 17:42 | Emergency (ER) | payer MEDICARE, OTHER ==
[2018-09-27 17:54] VITALS: TEMP 97.7
--- NOTE | 2018-09-27 18:30 | ED ---
General Adult HPI - General Chief complaint: Urogenital Stated complaint: Bleeding Time Seen by Provider: 09/27/18 18:05 Source: patient, family, RN notes reviewed Mode of arrival: wheelchair Limitations: no limitations - History of Present Illness Initial comments: Chief complaint history of present illness this is an 82-year-old male who reports this morning while shaving he felt suddenly running down his leg he looked at it was fresh blood. Reports all day long these and bleeding from his penis. He does not feel as though he needs to go to the bathroom. It just comes out and clots and fresh blood. Patient denies trauma. He is on L Oquist for A. fib. - Related Data Home Medications Medication Instructions Recorded Confirmed Apixaban [Eliquis] 5 mg PO BID 07/10/18 08/04/18 Atorvastatin [Lipitor] 60 mg PO DAILY 07/10/18 08/04/18 Cholecalciferol [Vitamin D3] 1,000 unit PO DAILY 07/10/18 08/04/18 Fenofibrate Nanocrystallized 145 mg PO DAILY 07/10/18 08/04/18 [Tricor] Ferrous Sulfate [Iron (65 MG 325 mg PO DAILY 07/10/18 08/04/18 Elemental)] Loratadine [Claritin] 10 mg PO HS 07/10/18 08/04/18 Olmesartan [Benicar] 5 mg PO BID 07/10/18 08/04/18 Omeprazole 20 mg PO DAILY 07/10/18 08/04/18 Oxybutynin Xl [Ditropan XL] 5 mg PO HS 07/10/18 08/04/18 Pioglitazone [Actos] 15 mg PO DAILY 07/10/18 08/04/18 Tamsulosin [Flomax] 0.4 mg PO HS 07/10/18 08/04/18 Torsemide [Demadex] 5 mg PO Q48H 07/10/18 08/04/18 glipiZIDE [Glucotrol] 10 mg PO AC-BRKFST 07/10/18 08/04/18 levETIRAcetam [Keppra] 1,000 mg PO Q12HR 07/10/18 08/04/18 sitaGLIPtin [Januvia] 100 mg PO W/LUNCH 07/10/18 08/04/18 Ergocalciferol [Vitamin D2 50,000 unit PO QMONTH 07/29/18 08/04/18 (DRISDOL)] Previous Rx's Medication Instructions Recorded HYDROcodone/APAP 5-325MG [Nesbit 1 - 2 tab PO Q6HR PRN #56 tab 08/05/18 5-325] Sennosides [Senokot] 1 tab PO BID #60 tablet 08/05/18 Allergies Allergy/AdvReac Type Severity Reaction Status Date / Time propofol Allergy Severe stroke Verified 09/27/18 17:54 codeine AdvReac headach Verified 09/27/18 17:54 enalapril AdvReac Unknown Verified 09/27/18 17:54 enalaprilat [From Vasotec] AdvReac Unknown Verified 09/27/18 17:54 Sulfa (Sulfonamide AdvReac Unknown Verified 09/27/18 17:54 Antibiotics) sulfadiazine AdvReac Unknown Verified 09/27/18 17:54 sulfamethoxazole AdvReac Unknown Verified 09/27/18 17:54 [From Bactrim] trimethoprim [From Bactrim] AdvReac Unknown Verified 09/27/18 17:54 Review of Systems ROS Statement: Those systems with pertinent positive or pertinent negative responses have been documented in the HPI. Review of systems. Patient denies any other complaints other than noticing blood coming from his penis without complaint of bladder spasm or pain no kidney pain no chills no fever. Patient cannot control the blood coming out of his penis. He has never had problems in the past where he was unable to control his urine. He did have one previous episode of urinary tract infection presents with hematuria but at that time he was not incontinent of urine. All systems reviewed. The patient's past medical problems significant for diabetes mellitus on . A. fib on . Heart disease, cancers including prostate cancer, melanoma on his face. Basal cell carcinoma on his right anterior chest wall. He's had a history of GERD, hyperlipidemia, hypertension. Also osteoarthritis, the patient's stage III renal disease but improving with having lost weight and exercising. Patient has a seizure disorder as well as seizure was approximately 6 months ago prior one was over 10 years ago. This was just a short shaking of his left hand and it stopped. The patient surgeries include cardiac bypass, heart catheterization without stent placement. Bilateral knee replacements. Family history noncontributory. ALLERGIES include propofol, codeine, enalapril, sulfa drugs. Family history noncontributory. Nonsmoker ROS Other: All systems not noted in ROS Statement are negative. Past Medical History Past Medical History: Atrial Fibrillation, Coronary Artery Disease (CAD), Cancer, Diabetes Mellitus, GERD/Reflux, Hyperlipidemia, Hypertension, Osteoarthritis (OA), Prostate Disorder, Renal Disease, Seizure Disorder Additional Past Medical History / Comment(s): prosate cancer basal cell on chest remover, stage 3 kidney disease, vertigo History of Any Multi-Drug Resistant Organisms: None Reported Past Surgical History: Coronary Bypass/CABG, Heart Catheterization With Stent, Joint Replacement Additional Past Surgical History / Comment(s): left knee, left baby finger removed, bilat cataracts, right knee replacement Past Anesthesia/Blood Transfusion Reactions: Previous Problems w/ Anesthesia, Postoperative Nausea & Vomiting (PONV) Additional Past Anesthesia/Blood Transfusion Reaction / Comment(s): severe reaction to propofol and diprivan, causes stroke Date of Last Stent Placement:: unk Past Psychological History: No Psychological Hx Reported Smoking Status: Former smoker - Past Family History Mother Family Medical History: Cancer Additional Family Medical History / Comment(s): AGE 77 FROM COLON CANCER Father Family Medical History: Myocardial Infarction (ME) Additional Family Medical History / Comment(s): AGE 64 FROM ME General Exam - General Exam Comments Initial Comments: Physical examination; patient's vital signs shows temperature 97.7 pulse 79 respiratory rate 18 pulse ox 97% room air blood pressure 137/65. The patient denies any chest pain or shortness of breath. Abdominal is without pain. No complaint of suprapubic discomfort. The patient is not circumcised. Examination finds a large fresh blood clot at the urethral meatus. No pain with examination of the penis. Patient cannot control the bleeding from his penis. No flank pain no chills. Limitations: no limitations Course Vital Signs 09/27/18 17:51 Temperature 97.7 F Pulse Rate 79 Respiratory 18 Rate Blood Pressure 137/65 O2 Sat by Pulse 97 Oximetry Medical Decision Making - Medical Decision Making Medical decision making; was an 82-year-old male to complaint of uncontrolled bee bleeding from the penis. He states it started this morning while standing up shaving. He wraps it of his penis into a paper and blood is noted. He is able to urinate without difficulty. Patient reports he had 1 episode of this years ago nausea or tract infection. The patient's also had a history of prostate cancer which she states was treated by the urologist but reportedly was gone. The patient's labs show white count of 5.7 hemoglobin 10 hematocrit 31.9 PT is 13 INR is 1.3. Patient is on L Oquist because of his A. fib. His potassium is 4.6 with a BUN 21 creatinine 1.24 the GFR 55. Patient's blood sugars 142. Urine shows greater than 180 reds and 8 whites and no bacteria The case was discussed with Dr. Dubon, the patient's urologist. He recommends stopping the L Oquist, in the meanwhile to have a bladder scan to make sure he is able to evacuate and not obstructed. In the meanwhile the patient's to call follow up with the office. Dr. Dubon states this normally stops within 12 hours. The patient does not have any difficulty urinating. And his bladder without difficulty. A bladder scan at this time showed 125 ML's residual. The patient will be following up in office. Advised to call neisha should've any difficulties or problems. - Lab Data Result diagrams: 09/27/18 18:38 09/27/18 18:38 Lab Results 09/27/18 09/27/18 09/27/18 Range/Units 18:32 18:38 18:38 WBC 5.7 (3.8-10.6) k/uL RBC 3.66 L (4.30-5.90) m/uL Hgb 10.2 L (13.0-17.5) gm/dL Hct 31.9 L (39.0-53.0) % MCV 87.1 D (80.0-100.0) fL MCH 27.9 (25.0-35.0) pg MCHC 32.1 (31.0-37.0) g/dL RDW 15.1 (11.5-15.5) % Plt Count 243 (150-450) k/uL Neutrophils % 68 % Lymphocytes % 19 % Monocytes % 8 % Eosinophils % 3 % Basophils % 0 % Neutrophils # 3.9 (1.3-7.7) k/uL Lymphocytes # 1.1 (1.0-4.8) k/uL Monocytes # 0.4 (0-1.0) k/uL Eosinophils # 0.2 (0-0.7) k/uL Basophils # 0.0 (0-0.2) k/uL Hypochromasia Slight PT (9.0-12.0) sec INR (<1.2) APTT (22.0-30.0) sec Sodium 140 (137-145) mmol/L Potassium 4.6 (3.5-5.1) mmol/L Chloride 105 (98-107) mmol/L Carbon Dioxide 27 (22-30) mmol/L Anion Gap 8 mmol/L BUN 21 H (9-20) mg/dL Creatinine 1.24 (0.66-1.25) mg/dL Est GFR (CKD-EPI)AfAm 64 (>60 ml/min/1.73 sqM) Est GFR (CKD-EPI)NonAf 55 (>60 ml/min/1.73 sqM) Glucose 142 H (74-99) mg/dL Calcium 10.5 H (8.4-10.2) mg/dL Urine Color Light Red Urine Appearance Cloudy (Clear) Urine pH 5.0 (5.0-8.0) Ur Specific [place] 1.017 (1.001-1.035) Urine Protein Trace H (Negative) Urine Glucose (UA) Negative (Negative) Urine Ketones Negative (Negative) Urine Blood Large H (Negative) Urine Nitrite Negative (Negative) Urine Bilirubin Negative (Negative) Urine Urobilinogen <2.0 (<2.0) mg/dL Ur Leukocyte Esterase Negative (Negative) Urine RBC >182 H (0-5) /hpf Urine WBC 8 H (0-5) /hpf Urine Mucus Rare H (None) /hpf 09/27/18 Range/Units 18:38 WBC (3.8-10.6) k/uL RBC (4.30-5.90) m/uL Hgb (13.0-17.5) gm/dL Hct (39.0-53.0) % MCV (80.0-100.0) fL MCH (25.0-35.0) pg MCHC (31.0-37.0) g/dL RDW (11.5-15.5) % Plt Count (150-450) k/uL Neutrophils % % Lymphocytes % % Monocytes % % Eosinophils % % Basophils % % Neutrophils # (1.3-7.7) k/uL Lymphocytes # (1.0-4.8) k/uL Monocytes # (0-1.0) k/uL Eosinophils # (0-0.7) k/uL Basophils # (0-0.2) k/uL Hypochromasia PT 13.1 H (9.0-12.0) sec INR 1.3 H (<1.2) APTT 28.9 (22.0-30.0) sec Sodium (137-145) mmol/L Potassium (3.5-5.1) mmol/L Chloride (98-107) mmol/L Carbon Dioxide (22-30) mmol/L Anion Gap mmol/L BUN (9-20) mg/dL Creatinine (0.66-1.25) mg/dL Est GFR (CKD-EPI)AfAm (>60 ml/min/1.73 sqM) Est GFR (CKD-EPI)NonAf (>60 ml/min/1.73 sqM) Glucose (74-99) mg/dL Calcium (8.4-10.2) mg/dL Urine Color Urine Appearance (Clear) Urine pH (5.0-8.0) Ur Specific [place] (1.001-1.035) Urine Protein (Negative) Urine Glucose (UA) (Negative) Urine Ketones (Negative) Urine Blood (Negative) Urine Nitrite (Negative) Urine Bilirubin (Negative) Urine Urobilinogen (<2.0) mg/dL Ur Leukocyte Esterase (Negative) Urine RBC (0-5) /hpf Urine WBC (0-5) /hpf Urine Mucus (None) /hpf Disposition Clinical Impression: Hematuria, History of prostate cancer Disposition: HOME SELF-CARE Condition: Fair Additional Instructions: Stop here eliquis for the next 2 doses. Call follow-up with Dr. driver on Saturday morning. Increase fluids. Tylenol for discomfort Is patient prescribed a controlled substance at d/c from ED?: No Referrals: Marce Reilly MD [Primary Care Provider] - 1-2 days Time of Disposition: 19:43
--- NOTE | 2018-09-27 18:51 | XR ---
EXAMINATION TYPE: XR KUB portable DATE OF EXAM: 09/27/2018 COMPARISON: NONE HISTORY: Rectal bleeding. Pain TECHNIQUE: 2 views FINDINGS: 2 views upright show no sign of intestinal obstruction or pneumoperitoneum. Fecal pattern i s normal. Lung bases are clear. There are no pathologic calcifications over the kidneys. IMPRESSION: Nonacute abdomen.
[2018-09-27 19:02] LABS: Appearance,Urine Cloudy (Clear); Bilirubin,Urine Negative (Negative); Blood,Urine Large (Negative); Color,Urine Light Red; Glucose,Urine (UA) Negative (Negative); Ketones,Urine Negative (Negative); Leukocyte Esterase,Urine Negative (Negative); Mucus,Urine Rare /hpf; Nitrite,Urine Negative (Negative); Protein,Urine Trace (Negative); RBC,Urine >182 /hpf (0-5); Specific Gravity,Urine 1.017 (1.001-1.035); Urobilinogen,Urine <2.0 mg/dL (<2.0)
[2018-09-27 19:04] LABS: Basophils % (A) 0 %; Eosinophils # (A) 0.2 k/uL (0-0.7); Eosinophils % (A) 3 %; HCT 31.9 % (39.0-53.0); HGB 10.2 gm/dL (13.0-17.5); Hypochromasia Slight; Lymphocytes # (A) 1.1 k/uL (1.0-4.8); Lymphocytes % (A) 19 %; MCH 27.9 pg (25.0-35.0); MCHC 32.1 g/dL (31.0-37.0); MCV 87.1 fL (80.0-100.0); Mean Platelet Volume 7.6; Monocytes # (A) 0.4 k/uL (0-1.0); Monocytes % (A) 8 %; Neutrophils # (A) 3.9 k/uL (1.3-7.7); Neutrophils % (A) 68 %; Platelet Count 243 k/uL (150-450); RBC 3.66 m/uL (4.30-5.90); RDW 15.1 % (11.5-15.5); WBC 5.7 k/uL (3.8-10.6)
[2018-09-27 19:06] LABS: INR 1.3 (<1.2); Partial Thromboplastin Time 28.9 sec (22.0-30.0); Prothrombin Time 13.1 sec (9.0-12.0)
[2018-09-27 19:08] LABS: Calcium 10.5 mg/dL (8.4-10.2); Potassium 4.6 mmol/L (3.5-5.1)
[2018-09-27 19:49] VITALS: BP 163/76; PULSE 68; RESP 16
== END 2018-09-27 19:48 | disposition home or self-care (01) ==
LOC: EC 17:42
DX: R31.9 Hematuria, unspecified (principal); E11.65 Type 2 diabetes mellitus with hyperglycemia; I48.91 Unspecified atrial fibrillation; K21.9 Gastro-esophageal reflux disease without esophagitis; I25.10 Atherosclerotic heart disease of native coronary artery without angina pectoris; E78.5 Hyperlipidemia, unspecified; I12.9 Hypertensive chronic kidney disease with stage 1 through stage 4 chronic kidney disease, or unspecified chronic kidney disease; E11.22 Type 2 diabetes mellitus with diabetic chronic kidney disease; N18.3 Chronic kidney disease, stage 3 (moderate); M19.90 Unspecified osteoarthritis, unspecified site; G40.909 Epilepsy, unspecified, not intractable, without status epilepticus; Z85.46 Personal history of malignant neoplasm of prostate; Z85.828 Personal history of other malignant neoplasm of skin; Z95.1 Presence of aortocoronary bypass graft; Z95.5 Presence of coronary angioplasty implant and graft; Z96.651 Presence of right artificial knee joint; Z87.891 Personal history of nicotine dependence; Z79.01 Long term (current) use of anticoagulants; Z79.84 Long term (current) use of oral hypoglycemic drugs; Z79.899 Other long term (current) drug therapy; Z88.4 Allergy status to anesthetic agent; Z88.5 Allergy status to narcotic agent; Z88.8 Allergy status to other drugs, medicaments and biological substances; Z88.2 Allergy status to sulfonamides
CPT/HCPCS: 36415; 74018; 80048; 81001; 85025; 85610; 85730; 99284

== ENCOUNTER 2018-10-14 07:47 | Day surgery (SDC) | payer MEDICARE, OTHER ==
[2018-10-09 16:07] VITALS: BMI 27.6
[~2018-10-14 07:47] MED LIST changes: -ACETAMINOPHEN TAB 500 MG TAB PO ONE; +LACTATED RINGERS 1,000 ML IV SCH; -MELOXICAM 7.5 MG TAB PO ONE; -MIDAZOLAM (PF) 2 MG/2 ML VIAL IV PRN; +MIDAZOLAM 2 MG/2 ML VIAL IV PRN; +Pre Op ABX Message 1 EACH MISC MISCELLANE ONE; -TRANEXAMIC ACID 1,000 MG in SODIUM CHLORIDE 0.9% 100 ML IVPB ONE; -ceFAZolin IN SWFI 2 GM/20 ML SYRINGE IVP ONE; -fentaNYL (PF) 50 MCG/ML 2 ML AMP IV PRN
[2018-10-14] MEDS ORDERED: LIDOCAINE 1% 20 ML VIAL (10MG/ML) FOR IV START INTRADERMA ONE (08:46)
[2018-10-14 08:53] VITALS: TEMP 97.5
[2018-10-14] MEDS ORDERED: KETOROLAC 30 MG/ML 1 ML VIAL ONE (09:00)
[2018-10-14] MEDS ORDERED: fentaNYL (PF) 50 MCG/ML 2 ML AMP ONE (09:00)
[2018-10-14] MEDS ORDERED: ETOMIDATE 2 MG/ML 10 ML VIAL ONE (09:00)
[2018-10-14] MEDS ORDERED: MIDAZOLAM 2 MG/2 ML VIAL ONE (09:00)
[2018-10-14 09:02] LABS: Glucose,Whole Blood 105 mg/dL (75-99)
[2018-10-14] MEDS ORDERED: BUPIVACAINE (PF) 0.5% 30 ML VIAL INTRAARTIC ONE (09:17)
[2018-10-14] MEDS ORDERED: methylPREDNISolone ACETATE 80 MG/ML 1 ML VIAL INTRAARTIC ONE (09:17)
--- NOTE | 2018-10-14 09:28 | P.OP ---
Date of Procedure: 10/14/18 Preoperative Diagnosis: Arthrofibrosis right total knee Postoperative Diagnosis: Arthrofibrosis right total knee Procedure(s) Performed: 1. Manipulation under anesthesia right total knee 2. Intra-articular cortisone injection right knee Anesthesia: MAC Surgeon: Chandler Parks Condition: stable Disposition: PACU Indications for Procedure: This is an 82-year-old gentleman that has had a right total knee arthroplasty performed on 08/04/2018. He has some swelling developed arthrofibrosis of his right knee despite aggressive physical therapy. After discussing the surgical nonsurgical treatment options with her at length, I recommended a manipulation under anesthesia of the right knee and informed consent was obtained. Operative Findings: The operative findings are consistent with arthrofibrosis of the right knee. His preoperative flexion was 90 and is postoperative flexion was 120. Description of Procedure: The patient was seen and evaluated preoperative area. The consent was reviewed and operative site was marked with a skin marker. The patient was then brought to the recovery room and a sedate him anesthetic was administered by the anesthesia department. A universal timeout was then performed confirming the patient's name, surgical site, ALLERGIES, and consent. After adequate anesthesia was administered. The right knee was then examined. The patient had near full extension of the right knee flexion was limited to 90. A gentle manipulation was then performed with multiple lesions felt to be released. The postoperative flexion was found to be 120. The knee was then sterilely prepped, and intra-articular injection of 80 mg of Depo-Medrol and 5 mL of ropivacaine was performed. The patient tolerated the procedure well.
[2018-10-14 09:44] VITALS: RESP 16
[2018-10-14 10:23] LABS: Glucose,Whole Blood 106 mg/dL (75-99)
[2018-10-14] MEDS ORDERED: traMADol 50 MG TAB PO ONE (10:31)
[2018-10-14 10:47] VITALS: BP 173/80; PULSE 62
== END 2018-10-14 11:10 | disposition home or self-care (01) ==
LOC: OR 07:47
PROVIDERS: ATTEND Orthopaedic Surgery
DX: M24.661 Ankylosis, right knee (principal); Z96.651 Presence of right artificial knee joint; I13.0 Hypertensive heart and chronic kidney disease with heart failure and stage 1 through stage 4 chronic kidney disease, or unspecified chronic kidney disease; I50.9 Heart failure, unspecified; E11.22 Type 2 diabetes mellitus with diabetic chronic kidney disease; N18.9 Chronic kidney disease, unspecified; E78.5 Hyperlipidemia, unspecified; N40.0 Benign prostatic hyperplasia without lower urinary tract symptoms; G40.909 Epilepsy, unspecified, not intractable, without status epilepticus; Z85.46 Personal history of malignant neoplasm of prostate; Z85.828 Personal history of other malignant neoplasm of skin; H91.90 Unspecified hearing loss, unspecified ear; Z79.84 Long term (current) use of oral hypoglycemic drugs; Z79.02 Long term (current) use of antithrombotics/antiplatelets; Z79.891 Long term (current) use of opiate analgesic; Z79.899 Other long term (current) drug therapy; Z88.1 Allergy status to other antibiotic agents; Z88.5 Allergy status to narcotic agent; Z88.2 Allergy status to sulfonamides; Z88.8 Allergy status to other drugs, medicaments and biological substances
CPT/HCPCS: 27570; J2250; J1040; J2405; J3010; J1885; J1170

== ENCOUNTER → 2019-07-10 | Outpatient (CLI) | payer MEDICARE, OTHER ==
[2019-07-10 16:23] LABS: Basophils # (A) 0.1 k/uL (0-0.2); Basophils % (A) 1 %; Eosinophils # (A) 0.1 k/uL (0-0.7); Eosinophils % (A) 2 %; HCT 32.4 % (39.0-53.0); HGB 9.9 gm/dL (13.0-17.5); Hypochromasia Slight; Lymphocytes # (A) 0.6 k/uL (1.0-4.8); Lymphocytes % (A) 11 %; MCH 29.1 pg (25.0-35.0); MCHC 30.6 g/dL (31.0-37.0); MCV 95.3 fL (80.0-100.0); Mean Platelet Volume 8.1; Monocytes # (A) 0.4 k/uL (0-1.0); Monocytes % (A) 8 %; Neutrophils # (A) 4.2 k/uL (1.3-7.7); Neutrophils % (A) 77 %; Platelet Count 220 k/uL (150-450); RDW 14.9 % (11.5-15.5); WBC 5.5 k/uL (3.8-10.6)
[2019-07-10 18:09] LABS: Erythrocyte Sedimentation Rate 41 mm/hr (0-15)
== END | disposition home or self-care (01) ==
LOC: LABWHC1 15:03
PROVIDERS: ATTEND Orthopaedic Surgery
DX: I13.0 Hypertensive heart and chronic kidney disease with heart failure and stage 1 through stage 4 chronic kidney disease, or unspecified chronic kidney disease (principal); I50.9 Heart failure, unspecified; N18.9 Chronic kidney disease, unspecified; E11.22 Type 2 diabetes mellitus with diabetic chronic kidney disease; M25.562 Pain in left knee; M25.462 Effusion, left knee; M25.062 Hemarthrosis, left knee; E78.5 Hyperlipidemia, unspecified; G40.909 Epilepsy, unspecified, not intractable, without status epilepticus; Z85.9 Personal history of malignant neoplasm, unspecified; Z87.891 Personal history of nicotine dependence; Z96.652 Presence of left artificial knee joint
CPT/HCPCS: 36415; 85025; 85652; 86140

== ENCOUNTER → 2019-07-15 | Outpatient (CLI) | payer MEDICARE, OTHER ==
--- NOTE | 2019-07-15 22:12 | CT ---
EXAMINATION TYPE: CT knee LT wo con DATE OF EXAM: 07/15/2019 COMPARISON: None HISTORY: 83-year-old male with left knee pain for 2-3 months TECHNIQUE: Contiguous axial scanning of the left knee without IV contrast. Coronal and sagittal recon structions performed. CT DLP: 1798.4 mGycm Automated exposure control for dose reduction was used. FINDINGS: Generalized subcutaneous edema. There appears to be a moderate size joint effusion of heterogeneous intermediate density. Extensive metal artifact from the patient's left total knee arthroplasty. To the extent visualized, e xtensor mechanism appears to be grossly intact. No large periprosthetic lucency or definite fracture is identified. No fluid seen along the deeper fascial planes or soft tissue air is identified. IMPRESSION: 1. MODERATE-SIZED COMPLEX APPEARING JOINT EFFUSION. CORRELATE WITH WBC COUNT, INFLAMMATORY MARKERS, E TC. TO EXCLUDE INFECTION OR GOUT. HEMARTHROSIS IS ALSO POSSIBLE. CONSIDER ULTRASOUND AND PERCUTANEOUS ARTHROCENTESIS. 2. THE ORTHOPEDIC HARDWARE ITSELF APPEARS INTACT WITHOUT SIGNIFICANT LOOSENING OR FRACTURE. 3. GENERALIZED SOFT TISSUE SWELLING.
== END | disposition home or self-care (01) ==
LOC: RADCTMAIN 13:30
PROVIDERS: ATTEND Orthopaedic Surgery
DX: M25.462 Effusion, left knee (principal); I13.10 Hypertensive heart and chronic kidney disease without heart failure, with stage 1 through stage 4 chronic kidney disease, or unspecified chronic kidney disease; E11.22 Type 2 diabetes mellitus with diabetic chronic kidney disease; N18.9 Chronic kidney disease, unspecified; G40.909 Epilepsy, unspecified, not intractable, without status epilepticus; E78.5 Hyperlipidemia, unspecified; Z96.652 Presence of left artificial knee joint; Z85.9 Personal history of malignant neoplasm, unspecified; Z87.891 Personal history of nicotine dependence

== ENCOUNTER → 2021-05-19 | Outpatient (CLI) | payer MEDICARE, OTHER ==
[2021-05-19 19:38] LABS: Appearance,BF Cloudy; Color,BF Pink; RBC, Body Fluid 13100 /uL
[2021-05-19 20:50] LABS: Polynuclear WBC,Body Fluid 18 %; Total Cells Counted,Body Fluid 100
[2021-05-19 20:51] LABS: Nucleated Cells, Body Fluid 125 /uL
[2021-05-19 20:52] LABS: Mononuclear WBC,Body Fluid 82 %
[2021-05-19 23:01] LABS: Basophils # (A) 0.03 X 10*3/uL (0.00-0.10); Basophils % (A) 0.4 %; Eosinophils # (A) 0.12 X 10*3/uL (0.04-0.35); Eosinophils % (A) 1.5 %; HCT 33.1 % (39.6-50.0); HGB 10.3 g/dL (13.0-17.0); Lymphocytes # (A) 0.76 X 10*3/uL (0.90-5.00); Lymphocytes % (A) 9.7 %; MCH 30.2 pg (27.0-32.0); MCHC 31.1 g/dL (32.0-37.0); MCV 97.1 fL (80.0-97.0); Mean Platelet Volume 10.2 fL (9.5-12.2); Monocytes # (A) 0.86 X 10*3/uL (0.20-1.00); Neutrophils # (A) 6.01 X 10*3/uL (1.80-7.70); Neutrophils % (A) 76.6 %; Platelet Count 289 X 10*3/uL (140-440); RBC 3.41 X 10*6/uL (4.40-5.60); RDW 14.1 % (11.5-14.5); WBC 7.84 X 10*3/uL (4.50-10.00)
[2021-05-20 01:38] LABS: Erythrocyte Sedimentation Rate 44 mm/Hr (0-20)
[2021-05-20 03:37] LABS: Streptolysin O Ab(ASO) 25 IU/L (0-200)
[2021-05-20 04:37] LABS: C Reactive Protein <0.30 mg/dL (0.00-0.80); Rheumatoid Factor, Qnt <10 IU/mL (0-15)
[2021-05-20 11:21] LABS: HLA B27 NEGATIVE
== END | disposition home or self-care (01) ==
LOC: LABWHC1 13:41
PROVIDERS: ATTEND Orthopaedic Surgery
DX: M25.562 Pain in left knee (principal); M25.462 Effusion, left knee; Z96.652 Presence of left artificial knee joint
CPT/HCPCS: 36415; 84443; 85025; 85652; 86038; 86060; 86140; 86431; 86618; 86812; 87070; 87075; 87205; 89050

== ENCOUNTER → 2021-06-20 | Outpatient (CLI) | payer MEDICARE, OTHER ==
--- NOTE | 2021-06-20 16:19 | NM ---
EXAMINATION TYPE: NM bone 3 phase DATE OF EXAM: 06/20/2021 COMPARISON: NONE HISTORY: Pain in left knee Delayed whole-body scanning was performed following the injection of 23.4 mCi Tc 99m MDP. Images wer e acquired 3 hours post injection. Three-phase bone scan imaging is performed over the bilateral knees. FINDINGS: Blood flow: There is symmetrical blood flow to the bilateral knees. Blood pool: Blood pool appears symmetrical. No focal uptake is identified. Static images: Bilateral knees history knee prostheses. No suspicious focal uptake is evident. Whole body imaging: There is mild uptake at the superior right acetabulum which can be degenerative i n nature. Diffuse mild uptake is at the bilateral hips likely related to degenerative change. Some mi ld diffuse uptake is in the region of the bilateral ankles. Suspicious uptake to suggest metastatic disease not identified. IMPRESSION: 1. No suspicious uptake to account for the pain. 2. No suspicious changes to suggest metastatic disease. 3. Mild uptake at the hips and ankles likely degenerative in nature. This appears greatest at the rig ht hip.
== END | disposition home or self-care (01) ==
LOC: RADNMMAIN 07:04
PROVIDERS: ATTEND Orthopaedic Surgery
DX: M25.562 Pain in left knee (principal)
CPT/HCPCS: 78315; A9503